=== PATIENT | female | born 1975 ===

== ENCOUNTER 2018-10-25 18:38 | Inpatient (IN) | payer MEDICAID ==
[2018-10-25] MEDS ORDERED: HYDROmorphone 1 MG/ML Syringe IVPUSH ONE (19:02)
[2018-10-25] MEDS ORDERED: Ondansetron 4 MG/2 ML SDV IVPUSH ONE (19:02)
[2018-10-25] MEDS ORDERED: cefTRIAXone 1 GM in Sodium Chloride 0.9% 100 ML IV SCH (19:15)
--- NOTE | 2018-10-25 20:23 | EDM.PDOC ---
ED HPI GENERAL MEDICAL PROBLEM - General Chief Complaint: Genitourinary Problem Stated Complaint: POSS KIDNEY INFECTION Time Seen by Provider: 10/25/18 18:54 Source of Information: Reports: Patient, RN Notes Reviewed History Limitations: Reports: No Limitations - History of Present Illness INITIAL COMMENTS - FREE TEXT/NARRATIVE: Patient is a 43 year old female who presents to the ED for the evaluation of pyelonephritis. The patient states that a few days ago she began to feel ill. She admits to having nausea with vomiting, abdominal pain, back pain. She states that this was bad enough that [facility], and they did lab work which showed that her WBC was elevated at 24, and a CT that demonstrated that she had bilateral pyelonephritis. She has been unable to keep much down for food or water and would rate her abdominal pain at 9/10. She states that she has had a low grade fever as well. She denies any other urinary symptoms. 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 History: csection - Past Surgical History GI Surgical History: Reports: Hernia, Inguinal Musculoskeletal Surgical History: Reports: ORIF Social & Family History - Family History Family Medical History: Noncontributory - Tobacco Use Smoking Status *Q: Never Smoker - Caffeine Use Caffeine Use: Reports: Soda - Recreational Drug Use Recreational Drug Use: No ED ROS GENERAL - Review of Systems Review Of Systems: See Below Constitutional: Reports: Fever, Malaise HEENT: Reports: No Symptoms Respiratory: Reports: No Symptoms Cardiovascular: Reports: No Symptoms Endocrine: Reports: No Symptoms GI/Abdominal: Reports: Abdominal Pain, Nausea, Vomiting. Denies: Diarrhea : Reports: No Symptoms, Flank Pain (bilateral with back pain) Musculoskeletal: Reports: No Symptoms Skin: Reports: No Symptoms Neurological: Reports: No Symptoms Psychiatric: Reports: No Symptoms Hematologic/Lymphatic: Reports: No Symptoms ED EXAM, RENAL/ - Physical Exam Exam: See Below Exam Limited By: No Limitations General Appearance: Alert, WD/WN, Mild Distress (pt appears to be in pain, is in ball on ED cot upont initial presentation.) Eye Exam: Bilateral Eye: EOMI, Normal Inspection, PERRL Ears: Normal External Exam Nose: Normal Inspection Throat/Mouth: Normal Inspection, Normal Oropharynx Head: Atraumatic, Normocephalic Neck: Normal Inspection Respiratory/Chest: No Respiratory Distress, Lungs Clear, Normal Breath Sounds, No Accessory Muscle Use, Chest Non-Tender Cardiovascular: Normal Peripheral Pulses, Regular Rate, Rhythm, No Murmur GI/Abdominal: Normal Bowel Sounds, Soft, No Distention, Guarding, Tender ( general tenderness throughout abdomen). No: Rigid, Rebound Back Exam: Normal Inspection, Full Range of Motion, CVA Tenderness (L), CVA Tenderness (R) Extremities: Normal Inspection, Normal Capillary Refill Neurological: Alert, Oriented, Normal Cognition, No Motor/Sensory Deficits Psychiatric: Normal Affect, Normal Mood Skin Exam: Warm, Dry, Intact, Normal Color, No Rash Course - Vital Signs Last Recorded V/S: Last Vital Signs Temp 99.6 F 10/25/18 18:51 Pulse 93 10/25/18 18:51 Resp 16 10/25/18 18:51 BP 159/86 H 10/25/18 18:51 Pulse Ox 94 L 10/25/18 18:51 - Orders/Labs/Meds Orders: Medication Orders Acetaminophen (Tylenol) 650 mg PO Q4H PRN PRN Reason: Pain (Mild 1-3)/fever Acetaminophen/Butalbital/Caffeine (Fioricet 325-50-40 Mg) 1 tab PO Q6H PRN PRN Reason: Headache/Pain Hydrocodone Bitart/Acetaminophen (Halbur 325-5 Mg) 1 tab PO Q4H PRN PRN Reason: Pain (moderate 4-6) Albuterol/Ipratropium (Duoneb 3.0-0.5 Mg/3 Ml) 3 ml NEB Q4H PRN PRN Reason: Shortness Of Breath/wheezing Bisacodyl (Dulcolax) 5 mg PO DAILY PRN PRN Reason: Constipation Famotidine (Pepcid) 20 mg PO BID YAQUELIN Hydralazine HCl (Apresoline) 20 mg IVPUSH Q4H PRN PRN Reason: Hypertension Hydromorphone HCl (Dilaudid) 0.5 mg IVPUSH Q4H PRN PRN Reason: Pain (severe 7-10) Sodium Chloride (Normal Saline) 1,000 mls @ 125 mls/hr IV ASDIRECTED [facility] Ceftriaxone Sodium 1 gm/ (Sodium Chloride) 100 mls @ 200 mls/hr IV Q24H YAQUELIN Piperacillin Sod/Tazobactam (Sod 4.5 gm/ Sodium Chloride) 100 mls @ 25 mls/hr IV Q8H YAQUELIN Piperacillin Sod/Tazobactam (Sod 4.5 gm/ Sodium Chloride) 100 mls @ 200 mls/hr IV ONETIME ONE Stop: 10/25/18 23:29 Lorazepam (Ativan) 1 mg IV Q6H PRN PRN Reason: Anxiety Magnesium Sulfate (Pharmacy To Dose - Magnesium Replacement) 1 dose .XX ASDIRECTED [facility] Metoprolol Tartrate (Lopressor) 5 mg IVPUSH Q4H PRN PRN Reason: Tachycardia Non-Formulary Medication (Lisinopril/Hydrochlorothiazide) 1 each PO DAILY [facility] Ondansetron HCl (Zofran) 4 mg IV Q6H PRN PRN Reason: Nausea/Vomiting Oxycodone HCl (Oxycontin) 10 mg PO Q12HR [facility] Polyethylene Glycol (Miralax) 17 gm PO DAILY PRN PRN Reason: Constipation Potassium Chloride (Pharmacy To Dose - Potassium Replacement) 1 dose .XX ASDIRECTED [facility] Saccharomyces Boulardii (Florastor) 250 mg PO BID [facility] Temazepam (Restoril) 7.5 mg PO BEDTIME PRN PRN Reason: Sleep Tramadol HCl (Ultram) 100 mg PO Q6H PRN PRN Reason: Pain (moderate 4-6) Meds: Medications Generic Name Dose Route Start Last Admin Trade Name Freq PRN Reason Stop Dose Admin Acetaminophen 650 mg 10/25/18 22:16 Tylenol PO Q4H PRN Pain (Mild 1-3)/fever Acetaminophen/Butalbital/Caffeine 1 tab 10/25/18 22:25 Fioricet 325-50-40 Mg PO Q6H PRN Headache/Pain Hydrocodone Bitart/Acetaminophen 1 tab 10/25/18 22:16 Halbur 325-5 Mg PO Q4H PRN Pain (moderate 4-6) Albuterol/Ipratropium 3 ml 10/25/18 22:16 Duoneb 3.0-0.5 Mg/3 Ml NEB Q4H PRN Shortness Of Breath/wheezing Bisacodyl 5 mg 10/25/18 22:16 Dulcolax PO DAILY PRN Constipation Famotidine 20 mg 10/26/18 09:00 Pepcid PO BID [facility] Hydralazine HCl 20 mg 10/25/18 22:15 Apresoline IVPUSH Q4H PRN Hypertension Hydromorphone HCl 0.5 mg 10/25/18 22:25 Dilaudid IVPUSH Q4H PRN Pain (severe 7-10) Sodium Chloride 1,000 mls @ 125 mls/hr 10/25/18 22:30 Normal Saline IV ASDIRECTED [facility] Ceftriaxone Sodium 1 gm/ 100 mls @ 200 mls/hr 10/26/18 20:00 Sodium Chloride IV Q24H [facility] Piperacillin Sod/Tazobactam 100 mls @ 25 mls/hr 10/26/18 07:00 Sod 4.5 gm/ Sodium Chloride IV Q8H YAQUELIN Piperacillin Sod/Tazobactam 100 mls @ 200 mls/hr 10/25/18 23:00 Sod 4.5 gm/ Sodium Chloride IV 10/25/18 23:29 ONETIME ONE Lorazepam 1 mg 10/25/18 22:16 Ativan IV Q6H PRN Anxiety Magnesium Sulfate 1 dose 10/25/18 22:15 Pharmacy To Dose - Magnesium Replacement .XX ASDIRECTED [facility] Metoprolol Tartrate 5 mg 10/25/18 22:15 Lopressor IVPUSH Q4H PRN Tachycardia Non-Formulary Medication 1 each 10/26/18 09:00 Lisinopril/Hydrochlorothiazide PO DAILY [facility] Ondansetron HCl 4 mg 10/25/18 22:16 Zofran IV Q6H PRN Nausea/Vomiting Oxycodone HCl 10 mg 10/26/18 09:00 Oxycontin PO Q12HR [facility] Polyethylene Glycol 17 gm 10/25/18 22:16 Miralax PO DAILY PRN Constipation Potassium Chloride 1 dose 10/25/18 22:15 Pharmacy To Dose - Potassium Replacement .XX ASDIRECTED [facility] Saccharomyces Boulardii 250 mg 10/26/18 09:00 Florastor PO BID YAQUELIN Temazepam 7.5 mg 10/25/18 22:16 Restoril PO BEDTIME PRN Sleep Tramadol HCl 100 mg 10/25/18 22:24 Ultram PO Q6H PRN Pain (moderate 4-6) Discontinued Medications Generic Name Dose Route Start Last Admin Trade Name Freq PRN Reason Stop Dose Admin Hydromorphone HCl 0.5 mg 10/25/18 19:02 10/25/18 20:34 Dilaudid IVPUSH 10/25/18 19:03 0.5 mg ONETIME ONE Administration Ceftriaxone Sodium 1 gm/ 100 mls @ 200 mls/hr 10/25/18 19:15 10/25/18 20:34 Sodium Chloride IV 200 mls/hr Q24H YAQUELIN Administration Sodium Chloride 1,000 mls @ 999 mls/hr 10/25/18 20:30 10/25/18 20:33 Normal Saline IV 999 mls/hr ASDIRECTED YAQUELIN Administration Ondansetron HCl 4 mg 10/25/18 19:02 10/25/18 20:33 Zofran IVPUSH 10/25/18 19:03 4 mg ONETIME ONE Administration Scopolamine 1.5 mg 10/25/18 22:22 Transderm-Scop TRDERM 10/25/18 22:23 Q72H ONE - Re-Assessments/Exams Free Text/Narrative Re-Assessment/Exam: 10/25/18 20:25 Pt presents to the ED for the evaluation of pyelonephritis. [facility] in clinic did most of the work up and sent her with paperwork, the CT did demonstrate pyelonephritis, but because she is unable to keep any fluids/foods/ meds down by mouth they sent her here for IV antibiotics and nausea medications. I have ordered 4mg IV zofran, 1g IV Rocephin, 0.5 IV Dilaudid and IV bolus of fluid for initial management. 10/25/18 22:03 Pt was re-assessed at bedside and she will require hospital admission for observation for pain/nausea management overnight. Dr. Angeles has accepted. Bridge orders have been written. Departure - Departure Time of Disposition: 22:04 Disposition: Refer to Observation Condition: Fair Clinical Impression: Pyelonephritis - Discharge Information *PRESCRIPTION DRUG MONITORING PROGRAM REVIEWED*: No *COPY OF PRESCRIPTION DRUG MONITORING REPORT IN PATIENT YAHIR: No
[2018-10-25] MEDS ORDERED: Sodium Chloride 0.9% 1,000 ML IV SCH (20:30)
[2018-10-25] MEDS ORDERED: Metoprolol Tartrate 5 MG/5 ML SDV IVPUSH PRN (22:15)
[2018-10-25] MEDS ORDERED: hydrALAZINE 20 MG/ML SDV IVPUSH PRN (22:15)
[2018-10-25] MEDS ORDERED: Polyethylene Glycol 3350 Powder 17 GM Packet PO PRN (22:16)
[2018-10-25] MEDS ORDERED: Bisacodyl 5 MG Tab PO PRN (22:16)
[2018-10-25] MEDS ORDERED: Acetaminophen 325 MG Tab PO PRN (22:16)
[2018-10-25] MEDS ORDERED: Albuterol/Ipratropium 3.0-0.5 MG/3 ML Neb Soln NEB PRN (22:16)
[2018-10-25] MEDS ORDERED: Temazepam 7.5 MG Cap PO PRN (22:16)
[2018-10-25] MEDS ORDERED: LORazepam 2 MG/ML SDV IV PRN (22:16)
[2018-10-25] MEDS ORDERED: Scopolamine 1.5 MG Transdermal Patch TRDERM ONE (22:22)
[2018-10-25] MEDS ORDERED: traMADol 50 MG Tab PO PRN (22:24)
[2018-10-25] MEDS ORDERED: Acetaminophen/Butalbital/Caffeine 325-50-40 MG Tab PO PRN (22:25)
[2018-10-25] MEDS ORDERED: Piperacillin/Tazobactam 4.5 GM in Sodium Chloride 0.9% 100 ML IV ONE (23:00)
[2018-10-25] MEDS: Sodium Chloride 0.9% 1,000 ML IV SCH (23:47)
[2018-10-25] MEDS: HYDROmorphone 1 MG/ML Syringe IVPUSH PRN (23:51)
[2018-10-26] MEDS ORDERED: Sodium Chloride 0.9% 100 ML ONE (00:03)
[2018-10-26] MEDS: Acetaminophen/HYDROcodone 325-5 MG Tab PO PRN ×2 (04:17→18:20)
[2018-10-26] MEDS: Ondansetron 4 MG/2 ML SDV IV PRN ×2 (04:17→10:22)
[2018-10-26] MEDS: HYDROmorphone 1 MG/ML Syringe IVPUSH PRN (05:24)
[2018-10-26] MEDS: Piperacillin/Tazobactam 4.5 GM in Sodium Chloride 0.9% 100 ML IV SCH ×3 (06:32→21:51)
[2018-10-26] MEDS: Sodium Chloride 0.9% 1,000 ML IV SCH ×2 (06:37→20:32)
--- NOTE | 2018-10-26 07:39 | PCM.HP ---
H&P History of Present Illness - General Date of Service: 10/26/18 Admit Problem/Dx: Admission Diagnosis/Problem Admission Diagnosis/Problem Pyelonephritis Source of Information: Patient, Old Records, Provider, RN, RN Notes Reviewed History Limitations: Reports: No Limitations - History of Present Illness Initial Comments - Free Text/Narative: Taylor Reid is a 43yo female who presented to our ED on 10/25/18 with a possible kidney infection. She reports she has had symptoms for a few days, which include nausea, vomiting, abdominal pain, and back pain. She presented to the walk-in clinic at [facility] today in the lab work. CBC showed a WBC elevated at 24. CT scan was obtained that did show bilateral pyelonephritis , worse on the left than on the right. She rated her pain at 9 out of 10 and reports she is not okay much food or water down. She reports a low-grade fever but denies any other urinary symptoms. Lab work performed [facility] was reviewed: WBC is 24.5. Hemoglobin 7.9. Hematocrit 26.8. She is microcytic. Pulses are good at 325,000. UA is obtained showing 21-50 WBCs, 11-30 RBCs, occasional epithelial cells, and moderate bacteria. 100 mg/dL protein and moderate leukocyte esterase are also noted. Neutrophils are noted to be elevated at 90% however there is no bandemia present. Glucose is 94. BUN is 9. Creatinine 1.0. Sodium is 140. Potassium is just a smidge low at 3.4. Chloride 106. CO2 27. Anion gap is 10. Calcium is 9.0. Protein 7.7. Albumin 3.8. Alkaline phosphatase is 104. AST is 25, ALT 22, total bilirubin 0.7. EGFR is 73. Amylase is obtained and is normal less than 30. Abdomen pelvis CT with contrast is interpreted as "1. Imaging findings suggestive of pyelonephritis, left greater than right. No CT evidence of renal abscess. No obvious urinary calculus, however ureters are difficult to follow in their entirety distally. 2. Mild irregularity involving the inferior endplate of L5. Findings are likely degenerative or related to Schmorl's node formation, but if clinical concern for discitis osteomyelitis, correlation with lumbar spine MR could be useful. 3. Irregularity of the sacroiliac joints bilaterally( series 4, image 63). CT findings are suggestive of changes from sacroiliitis. 4. Left adnexal cyst measuring 2.5 cm." In our ED temp was 99.6 Fahrenheit. Pulse 93. Respirations 16. Blood pressure 159/86. Pulse ox 94% she was given Dilaudid for pain and a 1 L fluid bolus. She is also given 4 mg IV push Zofran and a scopolamine patch. 1 g IV Rocephin was started. Dr. Angeles requested a quantitative hCG which was negative. CRP was obtained and was 15.1. Repeat UA was obtained showing cloudy urine with 1+ protein, 1+ occult blood, 1+ leukocyte esterase, 20-30 WBCs, 10- 20 epithelial cells. Urine hCG was also negative. She carries a history of hypertension, hiatal hernia, , tubal ligation , inguinal hernia repair. She was never a smoker. She was admitted observation status. She does not have a PCP in the area. Back Pain Score (Numeric/FACES): 9 - Related Data Allergies/Adverse Reactions: Allergies Allergy/AdvReac Type Severity Reaction Status Date / Time No Known Allergies Allergy Verified 10/25/18 18:47 Home Medications: Home Meds Lisinopril/Hydrochlorothiazide [Lisinopril-Hctz 10-12.5 mg Tab] 1 each PO DAILY 10/25/18 [History] Past Medical History Cardiovascular History: Reports: Hypertension Gastrointestinal History: Reports: Hiatal Hernia [employer] History: Reports: Other OB/BYN History: - Past Surgical History GI Surgical History: Reports: Hernia, Inguinal Musculoskeletal Surgical History: Reports: ORIF Other Musculoskeletal Surgeries/Procedures:: Right leg from was deformed and needed to be broke, fixed at that time. Social & Family History - Family History Family Medical History: Noncontributory - Tobacco Use Smoking Status *Q: Never Smoker Second Hand Smoke Exposure: No - Caffeine Use Caffeine Use: Reports: Soda - Recreational Drug Use Recreational Drug Use: No H&P Review of Systems - Review of Systems: Review Of Systems: See Below General: Reports: Fever, Malaise, Weakness, Fatigue. Denies: Chills HEENT: Reports: No Symptoms. Denies: Headaches, Rhinitis, Vertigo Pulmonary: Denies: Shortness of Breath, Wheezing, Cough, Sputum Cardiovascular: Denies: Chest Pain, Palpitations, Dyspnea on Exertion, Edema, Lightheadedness Gastrointestinal: Reports: Abdominal Pain (Radiating from back to abdomen to groin bilaterally ), Decreased Appetite, Nausea, Vomiting. Denies: Constipation , Diarrhea, Hematemesis, Hematochezia, Melena Genitourinary: Reports: Frequency, Urgency, Flank Pain. Denies: Pain, Incontinence, Hematuria Musculoskeletal: Reports: Back Pain Skin: Reports: No Symptoms. Denies: Cyanosis Psychiatric: Reports: No Symptoms. Denies: Confusion Neurological: Reports: No Symptoms Hematologic/Lymphatic: Reports: No Symptoms Immunologic: Reports: No Symptoms Exam - Exam Exam: See Below - Vital Signs Vital Signs: Last Vital Signs Temp 99.0 F 10/26/18 04:21 Pulse 92 10/26/18 04:01 Resp 20 10/26/18 04:21 BP 111/73 10/26/18 04:21 Pulse Ox 95 10/26/18 04:01 Weight: 231 lb 6.4 oz - Exam Quality Assessment: DVT Prophylaxis General: Alert, Oriented, Cooperative. No: Mild Distress HEENT: Conjunctiva Clear, EACs Clear, EOMI, Hearing Intact, Mucosa Moist & [place] , Normal Nasal Septum, Posterior Pharynx Clear Neck: Supple, Trachea Midline Lungs: Clear to Auscultation, Normal Respiratory Effort Cardiovascular: Regular Rate, Regular Rhythm GI/Abdominal Exam: Normal Bowel Sounds, Soft, No Organomegaly, No Distention, Guarding, Tender (Female) Exam: Deferred Rectal (Female) Exam: Deferred Back Exam: Normal Inspection, Full Range of Motion, CVA Tenderness (L), CVA Tenderness (R) (More left than right ) Extremities: Normal Inspection, Normal Range of Motion, Non-Tender, No Pedal Edema, Normal Capillary Refill Peripheral Pulses: 3+: Radial (L), Radial (R), Dorsalis Pedis (L), Dorsalis Pedis (R) Skin: Warm, Dry, Intact Neurological: Cranial Nerves Intact (grossly ) Neuro Extensive - Mental Status: Alert, Oriented x3, Normal Mood/Affect - Patient Data Lab Results Last 24 hrs: Laboratory Results - last 24 hr 10/25/18 10/25/18 10/25/18 Range/Units 21:35 21:35 22:50 WBC (3.98-10.04) K/mm3 RBC (3.98-5.22) M/mm3 Hgb (11.2-15.7) gm/L Hct (34.1-44.9) % MCV (79.4-94.8) fl MCH (25.6-32.2) pg MCHC (32.2-35.5) g/dl RDW Std Deviation (36.4-46.3) fL Plt Count (182-369) K/mm3 MPV (9.4-12.3) fl Neut % (Auto) (34.0-71.1) % Lymph % (Auto) (19.3-51.7) % [place] % (Auto) (4.7-12.5) % Eos % (Auto) (0.7-5.8) Baso % (Auto) (0.1-1.2) % Neut # (Auto) (1.56-6.13) K/mm3 Lymph # (Auto) (1.18-3.74) K/mm3 [place] # (Auto) (0.24-0.36) K/mm3 Eos # (Auto) (0.04-0.36) K/mm3 Baso # (Auto) (0.01-0.08) K/mm3 Sodium (136-145) mEq/L Potassium (3.5-5.1) mEq/L Chloride (98-107) mEq/L Carbon Dioxide (21-32) mEq/L Anion Gap (5-15) BUN (7-18) mg/dL Creatinine (0.55-1.02) mg/dL Est Cr Clr Drug Dosing mL/min Estimated GFR (MDRD) (>60) mL/min BUN/Creatinine Ratio (14-18) Glucose (74-106) mg/dL Calcium (8.5-10.1) mg/dL Magnesium (1.8-2.4) mg/dl C-Reactive Protein 15.1 H* (<1.0) mg/dL HCG, Quant mIU/mL Urine Color Yellow (Yellow) Urine Appearance Slt cloudy H (Clear) Urine pH 6.0 (5.0-8.0) Ur Specific [place] 1.010 (1.005-1.030) Urine Protein 1+ H (Negative) Urine Glucose (UA) Negative (Negative) Urine Ketones Negative (Negative) Urine Occult Blood 1+ H (Negative) Urine Nitrite Negative (Negative) Urine Bilirubin Negative (Negative) Urine Urobilinogen 1.0 (0.2-1.0) Ur Leukocyte Esterase 1+ H (Negative) Urine RBC 0-5 (0-5) /hpf Urine WBC 20-30 H (0-5) /hpf Urine WBC Clumps Few (NOT SEEN) /hpf Ur Epithelial Cells 10-20 H (0-5) /hpf Urine Bacteria Few (FEW) /hpf Urine Mucus Not seen (FEW) /hpf Urine HCG, Qual Negative (NEGATIVE) 10/25/18 10/26/18 10/26/18 Range/Units 22:50 05:41 05:41 WBC 23.01 H (3.98-10.04) K/mm3 RBC 4.23 (3.98-5.22) M/mm3 Hgb 7.2 L* (11.2-15.7) gm/L Hct 24.7 L (34.1-44.9) % MCV 58.4 L (79.4-94.8) fl MCH 17.0 L (25.6-32.2) pg MCHC 29.1 L (32.2-35.5) g/dl RDW Std Deviation 40.4 (36.4-46.3) fL Plt Count 295 (182-369) K/mm3 MPV 10.6 (9.4-12.3) fl Neut % (Auto) 80.9 H (34.0-71.1) % Lymph % (Auto) 5.3 L (19.3-51.7) % Swift % (Auto) 13.3 H (4.7-12.5) % Eos % (Auto) 0.2 L (0.7-5.8) Baso % (Auto) 0.0 L (0.1-1.2) % Neut # (Auto) 18.60 H (1.56-6.13) K/mm3 Lymph # (Auto) 1.23 (1.18-3.74) K/mm3 [place] # (Auto) 3.06 H (0.24-0.36) K/mm3 Eos # (Auto) 0.05 (0.04-0.36) K/mm3 Baso # (Auto) 0.01 (0.01-0.08) K/mm3 Sodium 135 L (136-145) mEq/L Potassium 3.0 L (3.5-5.1) mEq/L Chloride 104 (98-107) mEq/L Carbon Dioxide 23 (21-32) mEq/L Anion Gap 11.0 (5-15) BUN 9 (7-18) mg/dL Creatinine 1.2 H (0.55-1.02) mg/dL Est Cr Clr Drug Dosing 53.83 mL/min Estimated GFR (MDRD) 59 (>60) mL/min BUN/Creatinine Ratio 7.5 L (14-18) Glucose 114 H (74-106) mg/dL Calcium 8.6 (8.5-10.1) mg/dL Magnesium 2.0 (1.8-2.4) mg/dl C-Reactive Protein (<1.0) mg/dL HCG, Quant < 1.0 mIU/mL Urine Color (Yellow) Urine Appearance (Clear) Urine pH (5.0-8.0) Ur Specific [place] (1.005-1.030) Urine Protein (Negative) Urine Glucose (UA) (Negative) Urine Ketones (Negative) Urine Occult Blood (Negative) Urine Nitrite (Negative) Urine Bilirubin (Negative) Urine Urobilinogen (0.2-1.0) Ur Leukocyte Esterase (Negative) Urine RBC (0-5) /hpf Urine WBC (0-5) /hpf Urine WBC Clumps (NOT SEEN) /hpf Ur Epithelial Cells (0-5) /hpf Urine Bacteria (FEW) /hpf Urine Mucus (FEW) /hpf Urine HCG, Qual (NEGATIVE) Result Diagrams: 10/26/18 10:08 10/26/18 05:41 - Problem List (1) Pyelonephritis SNOMED Code(s): 30959878 ICD Code: N12 - TUBULO-INTERSTITIAL NEPHRITIS, NOT SPCF ACUTE OR CHRONIC Status: Acute Priority: High Current Visit: Yes (2) Anemia SNOMED Code(s): 716694135 ICD Code: D64.9 - ANEMIA, UNSPECIFIED Status: Acute Priority: High Current Visit: Yes Qualifiers: Anemia type: iron deficiency Iron deficiency anemia type: unspecified iron deficiency Qualified Code(s): D50.9 - Iron deficiency anemia, unspecified (3) Bilateral flank pain SNOMED Code(s): 594697287 ICD Code: R10.9 - UNSPECIFIED ABDOMINAL PAIN Status: Acute Priority: High Current Visit: Yes Problem List Initiated/Reviewed/Updated: Yes Orders Last 24hrs: Active Orders 24 hr Category Date Time Status Admission Status [Patient Status] [ADT] Routine ADT 10/25/18 21:56 Active Ambulate [RC] 09,15 Care 10/25/18 22:26 Active Antiembolic Devices [RC] BID Care 10/25/18 22:19 Active Height and Weight [RC] 04 Care 10/25/18 22:16 Active Intake and Output [RC] QSHIFT Care 10/25/18 22:17 Active Oxygen Therapy [RC] PRN Care 10/25/18 22:17 Active RT Aerosol Therapy [RC] ASDIRECTED Care 10/25/18 22:19 Active Up With Assistance [RC] BID Care 10/25/18 22:16 Active Up ad Anna [RC] BID Care 10/25/18 22:16 Active VTE/DVT Education [RC] DAILY Care 10/25/18 22:17 Active Vital Signs [RC] Q4HR Care 10/25/18 22:17 Active Nothing per Oral Now Diet [DIET] Diet 10/25/18 Dinner Active Regular Diet [DIET] Diet 10/25/18 Breakfast Active BASIC METABOLIC PANEL,BMP [CHEM] AM Lab 10/27/18 05:11 Ordered BASIC METABOLIC PANEL,BMP [CHEM] AM Lab 10/28/18 05:11 Ordered BASIC METABOLIC PANEL,BMP [CHEM] AM Lab 10/29/18 05:11 Ordered BASIC METABOLIC PANEL,BMP [CHEM] AM Lab 10/30/18 05:11 Ordered CBC WITH AUTO DIFF [HEME] AM Lab 10/26/18 05:41 Results CBC WITH AUTO DIFF [HEME] AM Lab 10/27/18 05:11 Ordered CBC WITH AUTO DIFF [HEME] AM Lab 10/28/18 05:11 Ordered CBC WITH AUTO DIFF [HEME] AM Lab 10/29/18 05:11 Ordered CBC WITH AUTO DIFF [HEME] AM Lab 10/30/18 05:11 Ordered CRP [C-REACTIVE PROTEIN] [CHEM] AM Lab 10/27/18 05:11 Ordered CRP [C-REACTIVE PROTEIN] [CHEM] AM Lab 10/28/18 05:11 Ordered CRP [C-REACTIVE PROTEIN] [CHEM] AM Lab 10/29/18 05:11 Ordered CRP [C-REACTIVE PROTEIN] [CHEM] AM Lab 10/30/18 05:11 Ordered CULTURE BLOOD [BC] Stat Lab 10/25/18 22:20 Ordered CULTURE BLOOD [BC] Stat Lab 10/25/18 22:50 Received CULTURE URINE [RM] Stat Lab 10/25/18 22:10 Received FE, TIBC, TRANSFERRIN, FE SAT [CHEM] Routine Lab 10/26/18 05:41 Received HEMOGLOBIN/HEMATOCRIT,HH [HEME] Routine Lab 10/26/18 10:00 Ordered MAGNESIUM [CHEM] AM Lab 10/27/18 05:11 Ordered MAGNESIUM [CHEM] AM Lab 10/28/18 05:11 Ordered MAGNESIUM [CHEM] AM Lab 10/29/18 05:11 Ordered MAGNESIUM [CHEM] AM Lab 10/30/18 05:11 Ordered OCCULT BLOOD DIAGNOSTIC [OP] Routine Lab 10/26/18 07:15 Ordered PROCALCITONIN [REF] Stat Lab 10/25/18 22:30 Received Acetaminophen [Tylenol] Med 10/25/18 22:16 Active 650 mg PO Q4H PRN Acetaminophen/Butalbital/Caff [Fioricet 325-50-40 MG] Med 10/25/18 22:25 Active 1 tab PO Q6H PRN Acetaminophen/HYDROcodone [Covert 325-5 MG] Med 10/25/18 22:16 Active 1 tab PO Q4H PRN Albuterol/Ipratropium [DuoNeb 3.0-0.5 MG/3 ML] Med 10/25/18 22:16 Active 3 ml NEB Q4H PRN Bisacodyl [Dulcolax] Med 10/25/18 22:16 Active 5 mg PO DAILY PRN Famotidine [Pepcid] Med 10/26/18 09:00 Active 20 mg PO BID HYDROmorphone [Dilaudid] Med 10/25/18 22:25 Active 0.5 mg IVPUSH Q4H PRN LORazepam [Ativan] Med 10/25/18 22:16 Active 1 mg IV Q6H PRN Lisinopril/Hydrochlorothiazide Med 10/26/18 09:00 Pending 1 each PO DAILY Metoprolol Tartrate [Lopressor] Med 10/25/18 22:15 Active 5 mg IVPUSH Q4H PRN Ondansetron [Zofran] Med 10/25/18 22:16 Active 4 mg IV Q6H PRN Pharmacy to Dose - Magnesium R [Pharmacy to Dose - Med 10/25/18 22:15 Active Magnesium Replacement] 1 dose .XX ASDIRECTED Pharmacy to Dose - Potassium R [Pharmacy to Dose - Med 10/25/18 22:15 Active Potassium Replacement] 1 dose .XX ASDIRECTED Piperacillin/Tazobactam [Piperacil-Tazobact] 4.5 gm Med 10/26/18 07:00 Active Sodium Chloride 0.9% [Normal Saline] 100 ml IV Q8H Polyethylene Glycol 3350 [MiraLAX] Med 10/25/18 22:16 Active 17 gm PO DAILY PRN Saccharomyces Boulardii [Florastor] Med 10/26/18 09:00 Active 250 mg PO BID Sodium Chloride 0.9% [Normal Saline] 1,000 ml Med 10/25/18 22:30 Active IV ASDIRECTED Temazepam [Restoril] Med 10/25/18 22:16 Active 7.5 mg PO BEDTIME PRN cefTRIAXone [Rocephin] 1 gm Med 10/26/18 20:00 Active Sodium Chloride 0.9% [Normal Saline] 100 ml IV Q24H hydrALAZINE [Apresoline] Med 10/25/18 22:15 Active 20 mg IVPUSH Q4H PRN oxyCODONE ER [OxyCONTIN] Med 10/26/18 09:00 Active 10 mg PO Q12HR traMADol [Ultram] Med 10/25/18 22:24 Active 100 mg PO Q6H PRN Blood Culture x2 Reflex Set [OM.PC] Stat Oth 10/25/18 22:16 Ordered Sequential Compression Device [OM.PC] Per Unit Routine Oth 10/25/18 22:17 Ordered Resuscitation Status Routine Resus Stat 10/25/18 22:16 Ordered Medication Orders Acetaminophen (Tylenol) 650 mg PO Q4H PRN PRN Reason: Pain (Mild 1-3)/fever Acetaminophen/Butalbital/Caffeine (Fioricet 325-50-40 Mg) 1 tab PO Q6H PRN PRN Reason: Headache/Pain Hydrocodone Bitart/Acetaminophen (Covert 325-5 Mg) 1 tab PO Q4H PRN PRN Reason: Pain (moderate 4-6) Albuterol/Ipratropium (Duoneb 3.0-0.5 Mg/3 Ml) 3 ml NEB Q4H PRN PRN Reason: Shortness Of Breath/wheezing Bisacodyl (Dulcolax) 5 mg PO DAILY PRN PRN Reason: Constipation Famotidine (Pepcid) 20 mg PO BID [facility] Hydralazine HCl (Apresoline) 20 mg IVPUSH Q4H PRN PRN Reason: Hypertension Hydromorphone HCl (Dilaudid) 0.5 mg IVPUSH Q4H PRN PRN Reason: Pain (severe 7-10) Last Admin: 10/26/18 05:24 Dose: 0.5 mg Admin: 10/25/18 23:51 Dose: 0.5 mg Sodium Chloride (Normal Saline) 1,000 mls @ 125 mls/hr IV ASDIRECTED [facility] Last Admin: 10/26/18 06:37 Dose: 125 mls/hr Infusion: 10/26/18 06:37 Dose: 125 mls/hr Admin: 10/25/18 23:47 Dose: 125 mls/hr Ceftriaxone Sodium 1 gm/ (Sodium Chloride) 100 mls @ 200 mls/hr IV Q24H [facility] Piperacillin Sod/Tazobactam (Sod 4.5 gm/ Sodium Chloride) 100 mls @ 25 mls/hr IV Q8H [facility] Last Admin: 10/26/18 06:32 Dose: 25 mls/hr Lorazepam (Ativan) 1 mg IV Q6H PRN PRN Reason: Anxiety Magnesium Sulfate (Pharmacy To Dose - Magnesium Replacement) 1 dose .XX ASDIRECTED [facility] Metoprolol Tartrate (Lopressor) 5 mg IVPUSH Q4H PRN PRN Reason: Tachycardia Non-Formulary Medication (Lisinopril/Hydrochlorothiazide) 1 each PO DAILY [facility] Ondansetron HCl (Zofran) 4 mg IV Q6H PRN PRN Reason: Nausea/Vomiting Last Admin: 10/26/18 04:17 Dose: 4 mg Oxycodone HCl (Oxycontin) 10 mg PO Q12HR [facility] Polyethylene Glycol (Miralax) 17 gm PO DAILY PRN PRN Reason: Constipation Potassium Chloride (Pharmacy To Dose - Potassium Replacement) 1 dose .XX ASDIRECTED [facility] Saccharomyces Boulardii (Florastor) 250 mg PO BID [facility] Temazepam (Restoril) 7.5 mg PO BEDTIME PRN PRN Reason: Sleep Tramadol HCl (Ultram) 100 mg PO Q6H PRN PRN Reason: Pain (moderate 4-6) Last Admin: 10/26/18 04:26 Dose: 100 mg Assessment/Plan Comment:: I/P: Acute: Pyelonephritis -Reports urgency and increased frequency, fever, nausea, vomiting -Back pain that started a few days ago, has increased in frequency, and radiates bilaterally around flank, through abdomen, and into groin -Pain is 9/10 -Bilateral CVA tenderness -WBC 23.01 -CRP 15.1 -CT scan at [place] (10/25/18) suggests pyelonephritis. Left greater than right, No evidence of abscess, No obvious urinary calculus -UA at [facility] (10/25/18): 21-50 WBCs, 11-30 RBCs, Moderate bacteria, Moderate LE, 100mg/dl Protein -Repeat UA in ED (10/25/18): Cloudy urine with 1+ protein, 1+ occult blood, 1 + leukocyte esterase, 20-30 WBCs, 10-20 epithelial cells -Urine culture pending -Started on 1gm Rocephin -> Stop. -Zosyn and vancomycin started. -IV fluids as ordered -Blood cultures pending -Lactic acid 0.6 -Pain medications as ordered -Probiotic -Antiemetics for nausea -Tylenol for fever Anemia -Hgb noted to be 7.9 at [place] (10/25/18) -Hgb 7.2 on 10/26/17, Repeat 7.1 -Given 2 units of blood on floor -Occult stool ordered -Iron panel: Iron 8, TIBC 254, % saturation 3, transferrin 203 -Reports very heavy periods since tubal ligation, needs to tape 2 pads together -Last menstrual cycle occurred at beginning of month, lasting 4-5 days -Continue to monitor Hypokalemia -Potassium 3.0 -Supplement Irregular CT scan on 10/25/[address] [facility] -"Mild irregularity involving the inferior endplate of L5. Findings are likely degenerative or related to Schmorl's node formation, but if clinical concern for discitis osteomyelitis, correlation with lumbar spine MR could be useful. -Based on severe pain and clinical picture will order MRI of lumbar spine - suggested by Dr. Angeles -Also noted "irregularity of the sacroiliac joints bilateral (series 4, image 63). CT findings are suggestive of changes from sacroiliitis" -Will order Toradol for inflammation -"Left adnexal cyst measuring up to 2.5 cm" -Suggest [employer] follow-up at discharge Chronic: HTN Hiatal hernia Prior Inguinal hernia with surgical repair Plan: Admit to medical floor observation status Other orders as indicated above Home medications as ordered Routine AM labs Ambulate DVT prophylaxis: SCDs Code status: Full code; PCP: None in area - travels here for work
[2018-10-26] MEDS ORDERED: diphenhydrAMINE 50 MG/ML SDV IVPUSH ONE (08:27)
[2018-10-26] MEDS ORDERED: methylPREDNISolone Sodium Succinate 40 MG/1 ML SDV IVPUSH ONE (08:28)
[2018-10-26] MEDS ORDERED: Lisinopril 10 MG Tab PO SCH (09:00)
[2018-10-26] MEDS: oxyCODONE ER 10 MG TAB.ER PO SCH ×2 (09:15→20:41)
[2018-10-26] MEDS: Iron Polysaccharides Complex 150 MG Cap PO SCH (09:19)
[2018-10-26] MEDS: Famotidine 20 MG Tab PO SCH ×2 (09:20→20:42)
[2018-10-26] MEDS: Saccharomyces Boulardii (Probiotic) 250 MG Cap PO SCH ×2 (09:23→20:41)
[2018-10-26] MEDS: Hydrochlorothiazide 12.5 MG Cap PO SCH (10:25)
[2018-10-26] MEDS: Potassium Chloride 20 MEQ Tab.ER PO SCH ×2 (10:32→20:40)
[2018-10-26] MEDS ORDERED: Sodium Chloride 0.9% 500 ML IV ONE (12:00)
[2018-10-26] MEDS: Ketorolac 30 MG/ML SDV IVPUSH SCH ×2 (14:21→20:42)
[2018-10-26] MEDS ORDERED: Gadobenate Dimeglumine 529 MG/ML 20 ML SDV IVPUSH ONE (15:07)
[2018-10-26] MEDS ORDERED: Sodium Chloride 0.9% 10 ML Syringe FLUSH SCH (15:15)
[2018-10-26] MEDS ORDERED: Vancomycin 1 GM, Vancomycin 250 MG in Sodium Chloride 0.9% 250 ML IV SCH ×2 (16:00→22:00)
--- NOTE | 2018-10-26 16:11 | MR ---
MRI lumbar spine (without and with intravenous contrast) Technique: T1, T2 and fat suppressed post gadolinium axial images were obtained from above the L1-L2 disc inferiorly to the L5-S1 disc. T1, T2, fat suppressed inversion recovery and post gadolinium T1 fat-suppressed sagittal images were obtained. Comparison: Previous CT abdomen and pelvis exam of 10/25/18 with reconstructed sagittal images shows the lumbar spine. Findings: T11-T12: Slight circumferential disc bulge is seen. Posterior disc appears to be contained. No central canal stenosis or neural foraminal stenosis is seen. T12-L1 through L3-L4: Posterior disks are maintained. No central canal stenosis or neural foraminal stenosis is seen. L4-L5: Slight circumferential disc bulge is seen. Posterior disc maintains a concave margin. Neural foramina appear patent where the nerve roots exit. No central canal stenosis is seen. L5-S1: Disc protrusion or Schmorl's node deformity is seen into the inferior endplate of L5. Slight circumferential disc bulge is seen with posterior disc is having a planar margin. Minimal area of increased signal is seen within the posterior left annulus compatible with small annular tear. Fatty marrow change is identified around this endplate defect. There is no bone marrow edema within L5. No abnormal enhancement is seen within the disc or within the vertebral body at this level. No central canal stenosis is seen. Neural foramina are patent where the nerve roots exit. Impression: 1. Mild degenerative change as noted above. No evidence of discitis or disc infection. More complete description as noted above. Diagnostic code #2
--- NOTE | 2018-10-26 18:25 | PCM.SN ---
- Free Text/Narrative Note: LS MRI report reads mild degenerative change. No evidence of discitis or disc infection. At this point, no changes needed on her current antibiotic regimen.
[2018-10-26] MEDS ORDERED: cefTRIAXone 1 GM in Sodium Chloride 0.9% 100 ML IV SCH (20:00)
[2018-10-26] MEDS ORDERED: cefTRIAXone 2 GM in Sodium Chloride 0.9% 100 ML IV SCH (20:00)
[2018-10-27] MEDS: Ketorolac 30 MG/ML SDV IVPUSH SCH ×4 (01:36→20:45)
[2018-10-27] MEDS: Piperacillin/Tazobactam 4.5 GM in Sodium Chloride 0.9% 100 ML IV SCH ×3 (01:38→18:42)
[2018-10-27] MEDS: Ondansetron 4 MG/2 ML SDV IV PRN (07:27)
--- NOTE | 2018-10-27 08:05 | PCM.PN ---
- General Info Date of Service: 10/27/18 Admission Dx/Problem (Free Text): Admission Diagnosis/Problem Admission Diagnosis/Problem Pyelonephritis Subjective Update: Taylor is doing better today. Her labs improved and her WBC has come down greatly. Pain is improving on palpation. Her Hgb has come up. Functional Status: Reports: Pain Controlled, Tolerating Diet, Ambulating, Urinating. Denies: New Symptoms - Review of Systems General: Reports: Weakness, Fatigue, Malaise. Denies: Fever, Chills HEENT: Reports: No Symptoms. Denies: Sore Throat Pulmonary: Reports: No Symptoms. Denies: Shortness of Breath, Cough, Sputum, Wheezing Cardiovascular: Reports: No Symptoms. Denies: Chest Pain, Palpitations, Dyspnea on Exertion, Edema, Lightheadedness Gastrointestinal: Reports: Decreased Appetite. Denies: Abdominal Pain, Constipation, Diarrhea, Nausea, Vomiting Genitourinary: Reports: No Symptoms Musculoskeletal: Reports: No Symptoms Skin: Reports: No Symptoms. Denies: Cyanosis Neurological: Reports: No Symptoms, Difficulty Walking (2/2 pain), Gait Disturbance (2/2 pain ). Denies: Confusion, Headache, Numbness, Pre-Existing Deficit, Seizure, Tingling, Trouble Speaking Psychiatric: Reports: No Symptoms - Patient Data Vitals - Most Recent: Last Vital Signs Temp 99.5 F 10/27/18 03:25 Pulse 71 10/27/18 03:25 Resp 16 10/27/18 03:25 BP 110/51 L 10/27/18 03:25 Pulse Ox 90 L 10/27/18 03:25 Weight - Most Recent: 237 lb 12.8 oz I&O - Last 24 Hours: Intake & Output 10/26/18 10/27/18 10/27/18 22:59 06:59 14:59 Intake Total 2153 2839 Output Total 500 900 Balance 1653 1939 Lab Results Last 24 Hours: Laboratory Results - last 24 hr 10/25/18 10/26/18 10/26/18 Range/Units 22:30 05:41 05:41 WBC (3.98-10.04) K/mm3 RBC (3.98-5.22) M/mm3 Hgb (11.2-15.7) gm/L Hct (34.1-44.9) % MCV (79.4-94.8) fl MCH (25.6-32.2) pg MCHC (32.2-35.5) g/dl RDW Std Deviation (36.4-46.3) fL Plt Count (182-369) K/mm3 MPV (9.4-12.3) fl Neut % (Auto) (34.0-71.1) % Lymph % (Auto) (19.3-51.7) % [place] % (Auto) (4.7-12.5) % Eos % (Auto) (0.7-5.8) Baso % (Auto) (0.1-1.2) % Neut # (Auto) (1.56-6.13) K/mm3 Lymph # (Auto) (1.18-3.74) K/mm3 [place] # (Auto) (0.24-0.36) K/mm3 Eos # (Auto) (0.04-0.36) K/mm3 Baso # (Auto) (0.01-0.08) K/mm3 Manual Slide Review Abnormal smear Sodium (136-145) mEq/L Potassium (3.5-5.1) mEq/L Chloride (98-107) mEq/L Carbon Dioxide (21-32) mEq/L Anion Gap (5-15) BUN (7-18) mg/dL Creatinine (0.55-1.02) mg/dL Est Cr Clr Drug Dosing mL/min Estimated GFR (MDRD) (>60) mL/min BUN/Creatinine Ratio (14-18) Glucose (74-106) mg/dL Lactic Acid (0.4-2.0) mmol/L Calcium (8.5-10.1) mg/dL Magnesium (1.8-2.4) mg/dl C-Reactive Protein (<1.0) mg/dL Procalcitonin 7.35 H (<0.10) ng/mL Blood Type O NEGATIVE Gel Antibody Screen Negative Crossmatch See Detail 10/26/18 10/26/18 10/27/18 Range/Units 10:08 12:40 06:45 WBC 12.75 H (3.98-10.04) K/mm3 RBC 4.63 (3.98-5.22) M/mm3 Hgb 7.1 L* 8.9 L (11.2-15.7) gm/L Hct 24.4 L 29.0 L (34.1-44.9) % MCV 62.6 L (79.4-94.8) fl MCH 19.2 L (25.6-32.2) pg MCHC 30.7 L (32.2-35.5) g/dl RDW Std Deviation 51.7 H (36.4-46.3) fL Plt Count 232 (182-369) K/mm3 MPV 9.5 (9.4-12.3) fl Neut % (Auto) 80.0 H (34.0-71.1) % Lymph % (Auto) 6.4 L (19.3-51.7) % [place] % (Auto) 12.7 H (4.7-12.5) % Eos % (Auto) 0.5 L (0.7-5.8) Baso % (Auto) 0.2 (0.1-1.2) % Neut # (Auto) 10.20 H (1.56-6.13) K/mm3 Lymph # (Auto) 0.82 L (1.18-3.74) K/mm3 [place] # (Auto) 1.62 H (0.24-0.36) K/mm3 Eos # (Auto) 0.06 (0.04-0.36) K/mm3 Baso # (Auto) 0.02 (0.01-0.08) K/mm3 Manual Slide Review Abnormal smear Sodium (136-145) mEq/L Potassium (3.5-5.1) mEq/L Chloride (98-107) mEq/L Carbon Dioxide (21-32) mEq/L Anion Gap (5-15) BUN (7-18) mg/dL Creatinine (0.55-1.02) mg/dL Est Cr Clr Drug Dosing mL/min Estimated GFR (MDRD) (>60) mL/min BUN/Creatinine Ratio (14-18) Glucose (74-106) mg/dL Lactic Acid 0.6 (0.4-2.0) mmol/L Calcium (8.5-10.1) mg/dL Magnesium (1.8-2.4) mg/dl C-Reactive Protein (<1.0) mg/dL Procalcitonin (<0.10) ng/mL Blood Type Gel Antibody Screen Crossmatch 10/27/18 Range/Units 06:45 WBC (3.98-10.04) K/mm3 RBC (3.98-5.22) M/mm3 Hgb (11.2-15.7) gm/L Hct (34.1-44.9) % MCV (79.4-94.8) fl MCH (25.6-32.2) pg MCHC (32.2-35.5) g/dl RDW Std Deviation (36.4-46.3) fL Plt Count (182-369) K/mm3 MPV (9.4-12.3) fl Neut % (Auto) (34.0-71.1) % Lymph % (Auto) (19.3-51.7) % [place] % (Auto) (4.7-12.5) % Eos % (Auto) (0.7-5.8) Baso % (Auto) (0.1-1.2) % Neut # (Auto) (1.56-6.13) K/mm3 Lymph # (Auto) (1.18-3.74) K/mm3 [place] # (Auto) (0.24-0.36) K/mm3 Eos # (Auto) (0.04-0.36) K/mm3 Baso # (Auto) (0.01-0.08) K/mm3 Manual Slide Review Sodium 139 (136-145) mEq/L Potassium 4.0 (3.5-5.1) mEq/L Chloride 105 (98-107) mEq/L Carbon Dioxide 23 (21-32) mEq/L Anion Gap 15.0 (5-15) BUN 11 (7-18) mg/dL Creatinine 1.3 H (0.55-1.02) mg/dL Est Cr Clr Drug Dosing 49.69 mL/min Estimated GFR (MDRD) 54 (>60) mL/min BUN/Creatinine Ratio 8.5 L (14-18) Glucose 76 (74-106) mg/dL Lactic Acid (0.4-2.0) mmol/L Calcium 8.3 L (8.5-10.1) mg/dL Magnesium 2.0 (1.8-2.4) mg/dl C-Reactive Protein 14.7 H* (<1.0) mg/dL Procalcitonin (<0.10) ng/mL Blood Type Gel Antibody Screen Crossmatch Arnel Results Last 24 Hours: Microbiology 10/25/18 22:50 Aerobic Blood Culture - Preliminary Blood - Venous NO GROWTH AFTER 1 DAY Anaerobic Blood Culture - Preliminary NO GROWTH AFTER 1 DAY 10/25/18 22:10 Urine Culture - Preliminary Urine, Clean Catch Gram Negative Rods Med Orders - Current: Current Medications Acetaminophen (Tylenol) 650 mg PO Q4H PRN PRN Reason: Pain (Mild 1-3)/fever Acetaminophen/Butalbital/Caffeine (Fioricet 325-50-40 Mg) 1 tab PO Q6H PRN PRN Reason: Headache/Pain Hydrocodone Bitart/Acetaminophen ([place] 325-5 Mg) 1 tab PO Q4H PRN PRN Reason: Pain (moderate 4-6) Last Admin: 10/26/18 18:20 Dose: 1 tab Albuterol/Ipratropium (Duoneb 3.0-0.5 Mg/3 Ml) 3 ml NEB Q4H PRN PRN Reason: Shortness Of Breath/wheezing Bisacodyl (Dulcolax) 5 mg PO DAILY PRN PRN Reason: Constipation Famotidine (Pepcid) 20 mg PO BID [facility] Last Admin: 10/26/18 20:42 Dose: 20 mg Hydralazine HCl (Apresoline) 20 mg IVPUSH Q4H PRN PRN Reason: Hypertension Hydrochlorothiazide (Hydrochlorothiazide) 12.5 mg PO DAILY [facility] Last Admin: 10/26/18 10:25 Dose: 12.5 mg Hydromorphone HCl (Dilaudid) 0.5 mg IVPUSH Q4H PRN PRN Reason: Pain (severe 7-10) Last Admin: 10/26/18 05:24 Dose: 0.5 mg Sodium Chloride (Normal Saline) 1,000 mls @ 75 mls/hr IV ASDIRECTED [facility] Last Admin: 10/26/18 20:32 Dose: 75 mls/hr Piperacillin Sod/Tazobactam (Sod 4.5 gm/ Sodium Chloride) 100 mls @ 25 mls/hr IV Q8H [facility] Last Admin: 10/27/18 01:38 Dose: 25 mls/hr Vancomycin HCl 1 gm/Vancomycin HCl 250 mg/ Sodium Chloride 250 mls @ 166.667 mls/hr IV Q12H [facility] Last Admin: 10/26/18 22:53 Dose: 166.667 mls/hr Ketorolac Tromethamine (Toradol) 30 mg IVPUSH Q6H [facility] Last Admin: 10/27/18 07:24 Dose: 30 mg Lorazepam (Ativan) 1 mg IV Q6H PRN PRN Reason: Anxiety Last Admin: 10/26/18 14:22 Dose: 1 mg Magnesium Sulfate (Pharmacy To Dose - Magnesium Replacement) 1 dose .XX ASDIRECTED [facility] Metoprolol Tartrate (Lopressor) 5 mg IVPUSH Q4H PRN PRN Reason: Tachycardia Ondansetron HCl (Zofran) 4 mg IV Q6H PRN PRN Reason: Nausea/Vomiting Last Admin: 10/27/18 07:27 Dose: 4 mg Oxycodone HCl (Oxycontin) 10 mg PO Q12HR [facility] Last Admin: 10/26/18 20:41 Dose: 10 mg Polyethylene Glycol (Miralax) 17 gm PO DAILY PRN PRN Reason: Constipation Polysaccharide Iron Complex (Ferrex 150) 150 mg PO DAILY [facility] Last Admin: 10/26/18 09:19 Dose: 150 mg Potassium Chloride (Pharmacy To Dose - Potassium Replacement) 1 dose .XX ASDIRECTED [facility] Saccharomyces Boulardii (Florastor) 250 mg PO BID [facility] Last Admin: 10/26/18 20:41 Dose: 250 mg Temazepam (Restoril) 7.5 mg PO BEDTIME PRN PRN Reason: Sleep Tramadol HCl (Ultram) 100 mg PO Q6H PRN PRN Reason: Pain (moderate 4-6) Last Admin: 10/26/18 04:26 Dose: 100 mg Vancomycin HCl (Pharmacy To Dose - Vancomycin) 1 dose .XX ASDIRECTED [facility] Discontinued Medications Diphenhydramine HCl (Benadryl) 25 mg IVPUSH ONETIME ONE Stop: 10/26/18 08:28 Last Admin: 10/26/18 09:18 Dose: Not Given Gadobenate Dimeglumine (Multihance) 20 ml IVPUSH ONETIME ONE Stop: 10/26/18 15:08 Last Admin: 10/26/18 15:49 Dose: 20 ml Hydromorphone HCl (Dilaudid) 0.5 mg IVPUSH ONETIME ONE Stop: 10/25/18 19:03 Last Admin: 10/25/18 20:34 Dose: 0.5 mg Ceftriaxone Sodium 1 gm/ (Sodium Chloride) 100 mls @ 200 mls/hr IV Q24H [facility] Last Admin: 10/25/18 20:34 Dose: 200 mls/hr Sodium Chloride (Normal Saline) 1,000 mls @ 999 mls/hr IV ASDIRECTED [facility] Last Admin: 10/25/18 20:33 Dose: 999 mls/hr Sodium Chloride (Normal Saline) 1,000 mls @ 125 mls/hr IV ASDIRECTED [facility] Last Admin: 10/26/18 06:37 Dose: 125 mls/hr Ceftriaxone Sodium 1 gm/ (Sodium Chloride) 100 mls @ 200 mls/hr IV Q24H [facility] Piperacillin Sod/Tazobactam (Sod 4.5 gm/ Sodium Chloride) 100 mls @ 25 mls/hr IV Q8H [facility] Last Admin: 10/26/18 21:51 Dose: Not Given Piperacillin Sod/Tazobactam (Sod 4.5 gm/ Sodium Chloride) 100 mls @ 200 mls/hr IV ONETIME ONE Stop: 10/25/18 23:29 Last Admin: 10/26/18 00:09 Dose: 200 mls/hr Sodium Chloride (Normal Saline) Confirm Administered Dose 100 mls @ as directed .ROUTE .STK-MED ONE Stop: 10/26/18 00:04 Last Admin: 10/26/18 05:12 Dose: Not Given Ferric Sodium Gluconate Complex 250 mg/ Sodium Chloride 120 mls @ 60 mls/hr IV ONETIME ONE Stop: 10/26/18 10:26 Sodium Chloride (Normal Saline) 500 mls @ 999 mls/min IV .BOLUS ONE Stop: 10/26/18 12:01 Last Admin: 10/26/18 21:51 Dose: Not Given Ceftriaxone Sodium 2 gm/ (Sodium Chloride) 100 mls @ 200 mls/hr IV Q24H [facility] Vancomycin HCl 1 gm/Vancomycin HCl 250 mg/ Sodium Chloride 250 mls @ 166.667 mls/hr IV Q12H [facility] Last Admin: 10/26/18 21:51 Dose: Not Given Lisinopril (Prinivil) 10 mg PO DAILY [facility] Last Admin: 10/26/18 10:27 Dose: 10 mg Methylprednisolone Sodium Succinate (Solu-Medrol) 40 mg IVPUSH ONETIME ONE Stop: 10/26/18 08:29 Last Admin: 10/26/18 09:18 Dose: Not Given Ondansetron HCl (Zofran) 4 mg IVPUSH ONETIME ONE Stop: 10/25/18 19:03 Last Admin: 10/25/18 20:33 Dose: 4 mg Potassium Chloride (Klor-Con M20) 40 meq PO BID [facility] Stop: 10/26/18 21:01 Last Admin: 10/26/18 20:40 Dose: 40 meq Scopolamine (Transderm-Scop) 1.5 mg TRDERM Q72H ONE Stop: 10/25/18 22:23 Last Admin: 10/25/18 23:48 Dose: 1.5 mg Sodium Chloride (Saline Flush) 10 ml FLUSH ASDIRECTED [facility] Stop: 10/26/18 18:00 Last Admin: 10/26/18 15:49 Dose: 10 ml - Exam Quality Assessment: DVT Prophylaxis General: Alert, Oriented, Cooperative, No Acute Distress HEENT: Pupils Equal, Pupils Reactive, EOMI, Mucous Membr. Moist/Shields Lungs: Clear to Auscultation, Normal Respiratory Effort Cardiovascular: Regular Rate, Regular Rhythm GI/Abdominal Exam: Normal Bowel Sounds, Soft, Non-Tender, No Distention, No Abnormal Bruit (Female) Exam: Deferred Back Exam: Normal Inspection, Full Range of Motion Extremities: Normal Inspection, Normal Range of Motion, Non-Tender, No Pedal Edema, Normal Capillary Refill Peripheral Pulses: 3+: Radial (L), Radial (R), Dorsalis Pedis (L), Dorsalis Pedis (R) Skin: Warm, Dry, Intact Neurological: No New Focal Deficit Psy/Mental Status: Alert, Normal Affect, Normal Mood - Problem List & Annotations (1) Pyelonephritis SNOMED Code(s): 93274586 Code(s): N12 - TUBULO-INTERSTITIAL NEPHRITIS, NOT SPCF ACUTE OR CHRONIC Status: Acute Priority: High Current Visit: Yes (2) Anemia SNOMED Code(s): 418934603 Code(s): D64.9 - ANEMIA, UNSPECIFIED Status: Acute Priority: High Current Visit: Yes Qualifiers: Anemia type: iron deficiency Iron deficiency anemia type: unspecified iron deficiency Qualified Code(s): D50.9 - Iron deficiency anemia, unspecified (3) Bilateral flank pain SNOMED Code(s): 231186220 Code(s): R10.9 - UNSPECIFIED ABDOMINAL PAIN Status: Acute Priority: High Current Visit: Yes - Problem List Review Problem List Initiated/Reviewed/Updated: Yes - My Orders Last 24 Hours: My Active Orders 10/26/18 07:15 OCCULT BLOOD DIAGNOSTIC [OP] Routine 10/26/18 07:54 May Shower [RC] ASDIRECTED Consult to Artificial Pearl Maker [CONS] Routine Consult to Spiritual Care [CONS] Routine 10/26/18 09:00 Iron Polysaccharides Complex [Ferrex 150] 150 mg PO DAILY 10/26/18 11:03 Transfuse Red Blood Cells [COMM] Routine 10/26/18 14:15 Ketorolac [Toradol] 30 mg IVPUSH Q6H 10/26/18 15:00 Pharmacy to Dose - Vancomycin 1 dose .XX ASDIRECTED 10/26/18 22:00 Vancomycin 1 gm Vancomycin 250 mg Sodium Chloride 0.9% [Normal Saline] 250 ml IV Q12H 10/28/18 05:11 CRP [C-REACTIVE PROTEIN] [CHEM] AM 10/29/18 05:11 CRP [C-REACTIVE PROTEIN] [CHEM] AM 10/30/18 05:11 CRP [C-REACTIVE PROTEIN] [CHEM] AM - Plan Plan:: I/P: Acute: Pyelonephritis -Reports urgency and increased frequency, fever, nausea, vomiting -Back pain that started a few days ago, has increased in frequency, and radiates bilaterally around flank, through abdomen, and into groin -Pain is 9/10 -Bilateral CVA tenderness -WBC 23.01-->12.75 -CRP 15.1-->14.7 -CT scan at [facility] (10/25/18) suggests pyelonephritis. Left greater than right, No evidence of abscess, No obvious urinary calculus -UA at [facility] (10/25/18): 21-50 WBCs, 11-30 RBCs, Moderate bacteria, Moderate LE, 100mg/dl Protein -Repeat UA in ED (10/25/18): Cloudy urine with 1+ protein, 1+ occult blood, 1 + leukocyte esterase, 20-30 WBCs, 10-20 epithelial cells -Urine culture shows gram negative rods -Obtain urine culture from [facility] if done -Started on 1gm Rocephin -> Stop -Zosyn and vancomycin started -> stop vancomycin -IV fluids as ordered -Blood cultures negative -Lactic acid 0.6 -Pain medications as ordered -Probiotic -Antiemetics for nausea -Tylenol for fever Anemia -Hgb noted to be 7.9 at [facility] (10/25/18) -Hgb 7.2 on 10/26/17, Repeat 7.1 -->8.9 -Given 2 units of blood on floor -Occult stool ordered -Iron panel: Iron 8, TIBC 254, % saturation 3, transferrin 203 -Reports very heavy periods since tubal ligation, needs to tape 2 pads together -Last menstrual cycle occurred at beginning of month, lasting 4-5 days -Continue to monitor Irregular CT scan on 10/25/[address] [facility] -"Mild irregularity involving the inferior endplate of L5. Findings are likely degenerative or related to Schmorl's node formation, but if clinical concern for discitis osteomyelitis, correlation with lumbar spine MR could be useful. -Based on severe pain and clinical picture will order MRI of lumbar spine - suggested by Dr. Angeles -Also noted "irregularity of the sacroiliac joints bilateral (series 4, image 63). 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
[2018-10-27] MEDS: Saccharomyces Boulardii (Probiotic) 250 MG Cap PO SCH ×2 (08:19→20:47)
[2018-10-27] MEDS: Famotidine 20 MG Tab PO SCH ×2 (08:19→20:47)
[2018-10-27] MEDS: Hydrochlorothiazide 12.5 MG Cap PO SCH (08:19)
[2018-10-27] MEDS: oxyCODONE ER 10 MG TAB.ER PO SCH ×2 (08:19→20:47)
[2018-10-27] MEDS: Iron Polysaccharides Complex 150 MG Cap PO SCH (08:19)
[2018-10-27] MEDS: Sodium Chloride 0.9% 1,000 ML IV SCH ×2 (09:24→22:51)
[2018-10-28] MEDS: Ketorolac 30 MG/ML SDV IVPUSH SCH ×4 (02:27→20:40)
[2018-10-28] MEDS: Piperacillin/Tazobactam 4.5 GM in Sodium Chloride 0.9% 100 ML IV SCH ×2 (02:30→09:31)
[2018-10-28] MEDS: oxyCODONE ER 10 MG TAB.ER PO SCH ×2 (09:30→20:38)
[2018-10-28] MEDS: Famotidine 20 MG Tab PO SCH ×2 (09:31→20:39)
[2018-10-28] MEDS: Hydrochlorothiazide 12.5 MG Cap PO SCH (09:31)
[2018-10-28] MEDS: Iron Polysaccharides Complex 150 MG Cap PO SCH (09:31)
[2018-10-28] MEDS: Saccharomyces Boulardii (Probiotic) 250 MG Cap PO SCH ×2 (09:31→20:38)
[2018-10-28] MEDS: Sodium Chloride 0.9% 1,000 ML IV SCH (10:57)
[2018-10-28] MEDS ORDERED: Furosemide 20 MG/2 ML VIAL IVPUSH ONE (12:30)
[2018-10-28] MEDS ORDERED: Dexamethasone 4 MG/ML SDV IVPUSH ONE (12:30)
[2018-10-28] MEDS: Ondansetron 4 MG/2 ML SDV IV PRN (12:41)
--- NOTE | 2018-10-28 14:06 | PCM.SN ---
- Free Text/Narrative Note: During rounds we had an interesting encounter with the patient's advocate regarding the care she has been getting here and the work up she wants us to do regarding Tracy's low Hgb level. We did re-assure her that we will follow hospital protocol for blood transfusion and consult our on-agusto [employer] Climber specialist for further evaluation. Our plan is, if stable and ready for discharge tomorrow, she will go straight up to the clinic for follow up appointment. Spoke to Dr. Oscar, he will be here to evaluate patient for spotting observed last night.
--- NOTE | 2018-10-28 14:58 | PCM.PN ---
- General Info Date of Service: 10/28/18 Admission Dx/Problem (Free Text): Admission Diagnosis/Problem Admission Diagnosis/Problem Pyelonephritis Subjective Update: In to see Taylor. She is improving daily. 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 Her boss is advocating for her and would like to know our plan. She is quite excited out our responses and has many questions. Assured her that we are providing the absolute best care we can with the resources we have. Assured her that we are not skimping on services because Taylor has no insurance but we are also very cautious to not give her a large bill with unnecessary testing. Her reticulocyte count is normal. Her occult stool is negative. Her abdominal CT scan did not show any signs of bleeding. She reports extremely heavy menses since having a tubal ligation. So much so that she has to tape 2 pads together. Because of all this we will order an BENEFITS CONSULTING ANALYST consult. We will also order an iron infusion. We also alerted SW to ensure she is receiving appropriate services. Lastly, Myself, Dr. Angeles, and charge nurse Stephanie Dominguez have been in multiple times to reassure Taylor we are providing the absolute best care we can here and answer all questions. Discussed case with Dr. Oscar who relays that this is in fact a common occurrence. He is going to review CT scan and if needed order an abdominal ultrasound. We will then start her on medications if needed. Functional Status: Reports: Pain Controlled, Tolerating Diet, Ambulating, Urinating. Denies: New Symptoms - Review of Systems General: Reports: Weakness (improved ). Denies: Fever, Fatigue, Malaise, Chills HEENT: Reports: No Symptoms. Denies: Headaches, Sore Throat Pulmonary: Reports: No Symptoms. Denies: Shortness of Breath, Cough, Sputum Cardiovascular: Reports: No Symptoms. Denies: Chest Pain, Palpitations, Orthopnea, Edema Gastrointestinal: Reports: Abdominal Pain (improving ). Denies: Constipation, Diarrhea, Nausea, Vomiting Genitourinary: Reports: Flank Pain (improving ) Musculoskeletal: Reports: No Symptoms Skin: Reports: No Symptoms. Denies: Cyanosis Neurological: Reports: No Symptoms. Denies: Confusion, Numbness, Pre-Existing Deficit, Difficulty Walking, Weakness, Gait Disturbance Psychiatric: Reports: No Symptoms - Patient Data Vitals - Most Recent: Last Vital Signs Temp 98.1 F 10/28/18 07:20 Pulse 68 10/28/18 07:20 Resp 15 10/28/18 07:20 BP 142/69 H 10/28/18 07:20 Pulse Ox 94 L 10/28/18 07:20 Weight - Most Recent: 241 lb 9.6 oz I&O - Last 24 Hours: Intake & Output 10/27/18 10/28/18 10/28/18 22:59 06:59 14:59 Intake Total 1883 2242 440 Output Total 700 750 Balance 1183 1492 440 Lab Results Last 24 Hours: Laboratory Results - last 24 hr 10/28/18 10/28/18 Range/Units 05:55 05:55 WBC 7.95 (3.98-10.04) K/mm3 RBC 4.59 (3.98-5.22) M/mm3 Hgb 8.7 L (11.2-15.7) gm/L Hct 28.9 L (34.1-44.9) % MCV 63.0 L (79.4-94.8) fl MCH 19.0 L (25.6-32.2) pg MCHC 30.1 L (32.2-35.5) g/dl RDW Std Deviation 53.3 H (36.4-46.3) fL Plt Count 223 (182-369) K/mm3 MPV 10.1 (9.4-12.3) fl Neut % (Auto) 62.5 (34.0-71.1) % Lymph % (Auto) 19.2 L (19.3-51.7) % [place] % (Auto) 15.5 H (4.7-12.5) % Eos % (Auto) 2.4 (0.7-5.8) Baso % (Auto) 0.1 (0.1-1.2) % Neut # (Auto) 4.97 (1.56-6.13) K/mm3 Lymph # (Auto) 1.53 (1.18-3.74) K/mm3 [place] # (Auto) 1.23 H (0.24-0.36) K/mm3 Eos # (Auto) 0.19 (0.04-0.36) K/mm3 Baso # (Auto) 0.01 (0.01-0.08) K/mm3 Manual Slide Review Abnormal smear Sodium 140 (136-145) mEq/L Potassium 3.8 (3.5-5.1) mEq/L Chloride 106 (98-107) mEq/L Carbon Dioxide 24 (21-32) mEq/L Anion Gap 13.8 (5-15) BUN 10 (7-18) mg/dL Creatinine 1.2 H (0.55-1.02) mg/dL Est Cr Clr Drug Dosing 53.75 mL/min Estimated GFR (MDRD) 59 (>60) mL/min BUN/Creatinine Ratio 8.3 L (14-18) Glucose 90 (74-106) mg/dL Calcium 8.4 L (8.5-10.1) mg/dL Magnesium 1.9 (1.8-2.4) mg/dl C-Reactive Protein 9.5 H* (<1.0) mg/dL Arnel Results Last 24 Hours: Microbiology 10/26/18 09:20 Stool Occult Blood (ARNEL) - Final Stool / Feces 10/25/18 23:00 Aerobic Blood Culture - Preliminary Blood - Venous - Lab Draw NO GROWTH AFTER 2 DAYS Anaerobic Blood Culture - Preliminary NO GROWTH AFTER 2 DAYS 10/25/18 22:50 Aerobic Blood Culture - Preliminary Blood - Venous NO GROWTH AFTER 2 DAYS Anaerobic Blood Culture - Preliminary NO GROWTH AFTER 2 DAYS 10/25/18 22:10 Urine Culture - Final Urine, Clean Catch Escherichia Coli Med Orders - Current: Current Medications Acetaminophen (Tylenol) 650 mg PO Q4H PRN PRN Reason: Pain (Mild 1-3)/fever Acetaminophen/Butalbital/Caffeine (Fioricet 325-50-40 Mg) 1 tab PO Q6H PRN PRN Reason: Headache/Pain Hydrocodone Bitart/Acetaminophen ([place] 325-5 Mg) 1 tab PO Q4H PRN PRN Reason: Pain (moderate 4-6) Last Admin: 10/26/18 18:20 Dose: 1 tab Albuterol/Ipratropium (Duoneb 3.0-0.5 Mg/3 Ml) 3 ml NEB Q4H PRN PRN Reason: Shortness Of Breath/wheezing Bisacodyl (Dulcolax) 5 mg PO DAILY PRN PRN Reason: Constipation Last Admin: 10/27/18 20:59 Dose: 5 mg Famotidine (Pepcid) 20 mg PO BID [facility] Last Admin: 10/28/18 09:31 Dose: 20 mg Hydralazine HCl (Apresoline) 20 mg IVPUSH Q4H PRN PRN Reason: Hypertension Hydrochlorothiazide (Hydrochlorothiazide) 12.5 mg PO DAILY [facility] Last Admin: 10/28/18 09:31 Dose: 12.5 mg Hydromorphone HCl (Dilaudid) 0.5 mg IVPUSH Q4H PRN PRN Reason: Pain (severe 7-10) Last Admin: 10/26/18 05:24 Dose: 0.5 mg Ceftriaxone Sodium 1 gm/ (Sodium Chloride) 100 mls @ 200 mls/hr IV Q24H [facility] Ferric Sodium Gluconate Complex 250 mg/ Sodium Chloride 120 mls @ 60 mls/hr IV ONETIME ONE Stop: 10/28/18 15:29 Last Admin: 10/28/18 14:46 Dose: 60 mls/hr Ketorolac Tromethamine (Toradol) 30 mg IVPUSH Q6H [facility] Last Admin: 10/28/18 13:43 Dose: 30 mg Lorazepam (Ativan) 1 mg IV Q6H PRN PRN Reason: Anxiety Last Admin: 10/26/18 14:22 Dose: 1 mg Magnesium Sulfate (Pharmacy To Dose - Magnesium Replacement) 1 dose .XX ASDIRECTED [facility] Metoprolol Tartrate (Lopressor) 5 mg IVPUSH Q4H PRN PRN Reason: Tachycardia Ondansetron HCl (Zofran) 4 mg IV Q6H PRN PRN Reason: Nausea/Vomiting Last Admin: 10/28/18 12:41 Dose: 4 mg Oxycodone HCl (Oxycontin) 10 mg PO Q12HR [facility] Last Admin: 10/28/18 09:30 Dose: 10 mg Polyethylene Glycol (Miralax) 17 gm PO DAILY PRN PRN Reason: Constipation Polysaccharide Iron Complex (Ferrex 150) 150 mg PO DAILY [facility] Last Admin: 10/28/18 09:31 Dose: 150 mg Potassium Chloride (Pharmacy To Dose - Potassium Replacement) 1 dose .XX ASDIRECTED [facility] Saccharomyces Boulardii (Florastor) 250 mg PO BID [facility] Last Admin: 10/28/18 09:31 Dose: 250 mg Temazepam (Restoril) 7.5 mg PO BEDTIME PRN PRN Reason: Sleep Tramadol HCl (Ultram) 100 mg PO Q6H PRN PRN Reason: Pain (moderate 4-6) Last Admin: 10/26/18 04:26 Dose: 100 mg Discontinued Medications Dexamethasone (Dexamethasone) 4 mg IVPUSH ONETIME ONE Stop: 10/28/18 12:31 Last Admin: 10/28/18 12:41 Dose: 4 mg Diphenhydramine HCl (Benadryl) 25 mg IVPUSH ONETIME ONE Stop: 10/26/18 08:28 Last Admin: 10/26/18 09:18 Dose: Not Given Furosemide (Lasix) 40 mg IVPUSH ONETIME ONE Stop: 10/28/18 12:31 Last Admin: 10/28/18 12:41 Dose: 40 mg Gadobenate Dimeglumine (Multihance) 20 ml IVPUSH ONETIME ONE Stop: 10/26/18 15:08 Last Admin: 10/26/18 15:49 Dose: 20 ml Hydromorphone HCl (Dilaudid) 0.5 mg IVPUSH ONETIME ONE Stop: 10/25/18 19:03 Last Admin: 10/25/18 20:34 Dose: 0.5 mg Ceftriaxone Sodium 1 gm/ (Sodium Chloride) 100 mls @ 200 mls/hr IV Q24H [facility] Last Admin: 10/25/18 20:34 Dose: 200 mls/hr Sodium Chloride (Normal Saline) 1,000 mls @ 999 mls/hr IV ASDIRECTED [facility] Last Admin: 10/25/18 20:33 Dose: 999 mls/hr Sodium Chloride (Normal Saline) 1,000 mls @ 125 mls/hr IV ASDIRECTED [facility] Last Admin: 10/26/18 06:37 Dose: 125 mls/hr Ceftriaxone Sodium 1 gm/ (Sodium Chloride) 100 mls @ 200 mls/hr IV Q24H [facility] Piperacillin Sod/Tazobactam (Sod 4.5 gm/ Sodium Chloride) 100 mls @ 25 mls/hr IV Q8H [facility] Last Admin: 10/26/18 21:51 Dose: Not Given Piperacillin Sod/Tazobactam (Sod 4.5 gm/ Sodium Chloride) 100 mls @ 200 mls/hr IV ONETIME ONE Stop: 10/25/18 23:29 Last Admin: 10/26/18 00:09 Dose: 200 mls/hr Sodium Chloride (Normal Saline) Confirm Administered Dose 100 mls @ as directed .ROUTE .STK-MED ONE Stop: 10/26/18 00:04 Last Admin: 10/26/18 05:12 Dose: Not Given Ferric Sodium Gluconate Complex 250 mg/ Sodium Chloride 120 mls @ 60 mls/hr IV ONETIME ONE Stop: 10/26/18 10:26 Last Admin: 10/27/18 09:57 Dose: Not Given Sodium Chloride (Normal Saline) 500 mls @ 999 mls/min IV .BOLUS ONE Stop: 10/26/18 12:01 Last Admin: 10/26/18 21:51 Dose: Not Given Sodium Chloride (Normal Saline) 1,000 mls @ 75 mls/hr IV ASDIRECTED [facility] Last Admin: 10/28/18 10:57 Dose: 75 mls/hr Ceftriaxone Sodium 2 gm/ (Sodium Chloride) 100 mls @ 200 mls/hr IV Q24H [facility] Vancomycin HCl 1 gm/Vancomycin HCl 250 mg/ Sodium Chloride 250 mls @ 166.667 mls/hr IV Q12H [facility] Last Admin: 10/26/18 21:51 Dose: Not Given Piperacillin Sod/Tazobactam (Sod 4.5 gm/ Sodium Chloride) 100 mls @ 25 mls/hr IV Q8H [facility] Stop: 10/28/18 14:00 Last Admin: 10/28/18 09:31 Dose: 25 mls/hr Vancomycin HCl 1 gm/Vancomycin HCl 250 mg/ Sodium Chloride 250 mls @ 166.667 mls/hr IV Q12H [facility] Last Admin: 10/26/18 22:53 Dose: 166.667 mls/hr Iron Sucrose 200 mg/ Sodium (Chloride) 260 mls @ 83 mls/hr IV ONETIME ONE Stop: 10/28/18 15:04 Last Admin: 10/28/18 12:09 Dose: Not Given Lisinopril (Prinivil) 10 mg PO DAILY [facility] Last Admin: 10/26/18 10:27 Dose: 10 mg Methylprednisolone Sodium Succinate (Solu-Medrol) 40 mg IVPUSH ONETIME ONE Stop: 10/26/18 08:29 Last Admin: 10/26/18 09:18 Dose: Not Given Ondansetron HCl (Zofran) 4 mg IVPUSH ONETIME ONE Stop: 10/25/18 19:03 Last Admin: 10/25/18 20:33 Dose: 4 mg Potassium Chloride (Klor-Con M20) 40 meq PO BID [facility] Stop: 10/26/18 21:01 Last Admin: 10/26/18 20:40 Dose: 40 meq Scopolamine (Transderm-Scop) 1.5 mg TRDERM Q72H ONE Stop: 10/25/18 22:23 Last Admin: 10/25/18 23:48 Dose: 1.5 mg Sodium Chloride (Saline Flush) 10 ml FLUSH ASDIRECTED [facility] Stop: 10/26/18 18:00 Last Admin: 10/26/18 15:49 Dose: 10 ml Vancomycin HCl (Pharmacy To Dose - Vancomycin) 1 dose .XX ASDIRECTED [facility] - Exam Quality Assessment: DVT Prophylaxis General: Alert, Oriented, Cooperative, No Acute Distress HEENT: Pupils Equal, Pupils Reactive, EOMI, Mucous Membr. Moist/[place] Neck: Supple, Trachea Midline, No JVD Lungs: Clear to Auscultation, Normal Respiratory Effort Cardiovascular: Regular Rate, Regular Rhythm GI/Abdominal Exam: Normal Bowel Sounds, Soft, No Organomegaly, No Distention, Tender (Improving) (Female) Exam: Deferred Back Exam: Normal Inspection, Full Range of Motion Extremities: Normal Inspection, Normal Range of Motion, Non-Tender, No Pedal Edema, Normal Capillary Refill Peripheral Pulses: 2+: Radial (L), Radial (R), Dorsalis Pedis (L), Dorsalis Pedis (R) Skin: Warm, Dry, Intact Neurological: No New Focal Deficit Psy/Mental Status: Alert, Normal Affect, Anxious - Problem List & Annotations (1) Pyelonephritis SNOMED Code(s): 48998587 Code(s): N12 - TUBULO-INTERSTITIAL NEPHRITIS, NOT SPCF ACUTE OR CHRONIC Status: Acute Priority: High Current Visit: Yes (2) Anemia SNOMED Code(s): 415231062 Code(s): D64.9 - ANEMIA, UNSPECIFIED Status: Acute Priority: High Current Visit: Yes Qualifiers: Anemia type: iron deficiency Iron deficiency anemia type: unspecified iron deficiency Qualified Code(s): D50.9 - Iron deficiency anemia, unspecified (3) Bilateral flank pain SNOMED Code(s): 239143067 Code(s): R10.9 - UNSPECIFIED ABDOMINAL PAIN Status: Acute Priority: High Current Visit: Yes (4) Adnexal cyst SNOMED Code(s): 45470023095202 Code(s): N94.9 - UNSP COND ASSOC W FEMALE GENITAL ORGANS AND MENSTRUAL CYCLE Status: Acute Priority: Medium Current Visit: Yes (5) Bilateral sacroiliitis SNOMED Code(s): 10426753 Code(s): M46.1 - SACROILIITIS, NOT ELSEWHERE CLASSIFIED Status: Acute Priority: High Current Visit: Yes - Problem List Review Problem List Initiated/Reviewed/Updated: Yes - My Orders Last 24 Hours: My Active Orders 10/27/18 14:30 Consult to Occupational Therapy [OT Evaluation and Treatment] [CONS] Routine PT Evaluation and Treatment [CONS] Routine 10/28/18 13:30 Sodium Ferric Gluconat/Sucrose [Sodium Ferric Gluc Cplx 62.5 MG/5 ML] 250 mg Sodium Chloride 0.9% [Normal Saline] 100 ml IV ONETIME 10/28/18 17:00 cefTRIAXone [Rocephin] 1 gm Sodium Chloride 0.9% [Normal Saline] 100 ml IV Q24H 10/29/18 05:11 CRP [C-REACTIVE PROTEIN] [CHEM] AM 10/30/18 05:11 CRP [C-REACTIVE PROTEIN] [CHEM] AM - Plan Plan:: I/P: Acute: Pyelonephritis -Reports urgency and increased frequency, fever, nausea, vomiting -Back pain that started a few days ago, has increased in frequency, and radiates bilaterally around flank, through abdomen, and into groin -Pain is 9/10 -Bilateral CVA tenderness -WBC 23.01-->12.75-->7.95 -CRP 15.1-->14.7-->9.5 -CT scan at [place] (10/25/18) suggests pyelonephritis. Left greater than right, No evidence of abscess, No obvious urinary calculus -UA at [place] (10/25/18): 21-50 WBCs, 11-30 RBCs, Moderate bacteria, Moderate LE, 100mg/dl Protein -Repeat UA in ED (10/25/18): Cloudy urine with 1+ protein, 1+ occult blood, 1 + leukocyte esterase, 20-30 WBCs, 10-20 epithelial cells -Urine culture shows gram negative rods -Obtain urine culture from [place] if done -Started on 1gm Rocephin -> Stopped -Zosyn and vancomycin started -> stop vancomycin--> stop zosyn and de- escalate to 1gm rocephin daily -IV fluids as ordered -Blood cultures negative -Lactic acid 0.6 -Pain medications as ordered -Probiotic -Antiemetics for nausea -Tylenol for fever Anemia -Hgb noted to be 7.9 at [place] (10/25/18) -Hgb 7.2 on 10/26/17, Repeat 7.1 -->8.9-->8.7 -Given 2 units of blood on floor -Occult stool ordered -Iron panel: Iron 8, TIBC 254, % saturation 3, transferrin 203 -Iron infusion -Reports very heavy periods since tubal ligation, needs to tape 2 pads together -OB consult ordered - Dr. Oscar -Last menstrual cycle occurred at beginning of month, lasting 4-5 days -Reportedly awoke and found to have small amount of blood on pad -Continue to monitor Irregular CT scan on 10/25/18 at [facility] -"Mild irregularity involving the inferior endplate of L5. Findings are likely degenerative or related to Schmorl's node formation, but if clinical concern for discitis osteomyelitis, correlation with lumbar spine MR could be useful. -Based on severe pain and clinical picture will order MRI of lumbar spine - suggested by Dr. Angeles -Also noted "irregularity of the sacroiliac joints bilateral (series 4, image 63). CT findings are suggestive of changes from sacroiliitis" -Will order Toradol for inflammation -"Left adnexal cyst measuring up to 2.5 cm" -Suggest BENEFITS CONSULTING ANALYST follow-up at discharge Resolved: Hypokalemia -Potassium 3.0-->4.0 -Supplement Chronic: HTN Hiatal hernia Prior Inguinal hernia with surgical repair Plan: Admit to medical floor observation status Other orders as indicated above Home medications as ordered Routine AM labs Ambulate DVT prophylaxis: SCDs Code status: Full code; PCP: None in area - travels here for work; Appointment made for Dr. Abraham, [facility]
--- NOTE | 2018-10-28 16:34 | PCM.CONS ---
H&P History of Present Illness - General Date of Service: 10/28/18 Admit Problem/Dx: Admission Diagnosis/Problem Admission Diagnosis/Problem Pyelonephritis Source of Information: Patient, Other History Limitations: Reports: No Limitations - History of Present Illness Initial Comments - Free Text/Narative: Taylor Is a 43-year-old 3 para 3002 -[place] female recently admitted to medical surgical unit for diagnosis of pyelonephritis. She was initially evaluated at [facility] at which time laboratory testing and a CT was performed. Diagnosis was pyelonephritis and patient was sent to the hospital for evaluation and therapy. On admit her temperatures found to be elevated. Her white blood count was 23.01. Hemoglobin and hematocrit were 7.2 and 24.7 respectively. Platelets are 295,000. Urinalysis was consistent with urinary tract infection. Her MCV 58.4 consistent with microcytic anemia. Patient was evaluated with clinical evaluation, further blood testing and an MRI of the spine which was unremarkable. Iron studies are pending at this time. Stool guaiacs were negative. Patient was that her anemia secondary to chronic blood loss anemia most probably secondary to her menstrual cycles. Patient reports her menstrual cycles be very heavy lasting up to 6 days and flowing enough where she uses 10 large, heavy duty pads per day with clot passage sometimes up to the size of her fist and with increased cramping consistent with dysmenorrhea. She denies bleeding from any other orifice. Patient was treated with 2 units of packed red blood cells which brought her hemoglobin to 8.7. I was asked to see the patient because of heavy bleedings and the history of anemia. [employer] history 3 para 3002 with deliveries including a male infant born 1986 via primary section. She had a stillborn in 1993 at 24 weeks gestational age. She had a female born in 2005 by repeat section at term. Menarche at age 11. Cycles every month. Duration 6 days. Heavy flow with clots and gushing with need for up to 10 pads per day. Last Pap smear in 2017 was normal. No abnormal ones reported by the patient. No STI's reported. She is not sexually active. Tubal ligation done at last for control. Past medical history: 1. Hypertension. 2. Hiatal hernia 3. has above 4. Vaginal delivery 1stillborn at 24 weeks 5. Obesity 6. Menorrhagia Past surgical history: 1. 2. 2. Inguinal hernia repair 3. 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 Mildred teeth extraction 5. Umbilical surgery as a baby 6. Bilateral tubal ligation with last section. Family history: Mother is secondary to motor vehicle accident a young age. Father is alive but is drug dependent. One sister with kidney disease awaiting a kidney transplant. One brother health unknown. No bleeding, blood clotting, cancer history reported by the patient. Social history: Patient is single. 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 She does not use any significant most alcohol, drugs, tobacco. She is region from [place] which she calls her home. She's been a [place] since July. She is planning on returning to [place] on 11/04. Review of systems: In general patient has complaints as outlined in history of present illness and in hospital admission history and physical.. Skin: Negative Lungs: No infectious symptoms or shortness of breath Cardiovascular: No chest pain or exercise intolerance Breasts: Negative GI: Negative : See history of present illness and [employer] history. Musculoskeletal: Negative Neurological: Negative Physical exam:In general the patient is well-developed, well-nourished, obese, pleasant female of stated age in no acute distress. Skin is warm dry without lesions. HEENT, neck and back within normal limits. Lungs are clear with good breath sounds in all lung yuan. Cardiovascular exam shows regular and rhythm without murmurs. Abdomen is morbidly obese, flat, soft, nontender without masses or organomegaly. Positive bowel sounds are noted. Scars present from a midline C- section scar. No inguinal lymphadenopathy or hernias are noted. Very difficult exam because of patient's obesity. Genital- patient does not appear that she would tolerate a speculum exam. Therefore exam is only Per bimanual. It shows normal external genitalia, BUS, pubic hair pattern. There is normal support, secretions and estrogenization vagina. Uterus is small, anterior, freely mobile, without parametrial induration or adnexal abnormalities. Exam our is suboptimal because of patient' s body habitus voluntary guarding. Extremities and neurological exam are grossly within normal limits except for edema in lower extremities.. Back Pain Score (Numeric/FACES): 9 - Related Data Allergies/Adverse Reactions: Allergies Allergy/AdvReac Type Severity Reaction Status Date / Time No Known Allergies Allergy Verified 10/25/18 18:47 Home Medications: Home Meds Lisinopril/Hydrochlorothiazide [Lisinopril-Hctz 10-12.5 mg Tab] 1 each PO DAILY 10/25/18 [History] Past Medical History Cardiovascular History: Reports: Hypertension Gastrointestinal History: Reports: Hiatal Hernia [employer] History: Reports: Other OB/BYN History: - Past Surgical History GI Surgical History: Reports: Hernia, Inguinal Musculoskeletal Surgical History: Reports: ORIF Other Musculoskeletal Surgeries/Procedures:: Right leg from was deformed and needed to be broke, fixed at that time. Social & Family History - Family History Family Medical History: Noncontributory - Tobacco Use Smoking Status *Q: Never Smoker Second Hand Smoke Exposure: No - Caffeine Use Caffeine Use: Reports: Soda - Recreational Drug Use Recreational Drug Use: No H&P Review of Systems - Review of Systems: Review Of Systems: See Below Exam - Exam Exam: See Below - Vital Signs Vital Signs: Last Vital Signs Temp 36.7 C 10/28/18 15:08 Pulse 72 10/28/18 15:08 Resp 16 10/28/18 15:08 BP 138/86 10/28/18 15:08 Pulse Ox 96 10/28/18 15:08 Weight: 109.588 kg - Patient Data Lab Results Last 24 hrs: Laboratory Results - last 24 hr 10/28/18 10/28/18 Range/Units 05:55 05:55 WBC 7.95 (3.98-10.04) K/mm3 RBC 4.59 (3.98-5.22) M/mm3 Hgb 8.7 L (11.2-15.7) gm/L Hct 28.9 L (34.1-44.9) % MCV 63.0 L (79.4-94.8) fl MCH 19.0 L (25.6-32.2) pg MCHC 30.1 L (32.2-35.5) g/dl RDW Std Deviation 53.3 H (36.4-46.3) fL Plt Count 223 (182-369) K/mm3 MPV 10.1 (9.4-12.3) fl Neut % (Auto) 62.5 (34.0-71.1) % Lymph % (Auto) 19.2 L (19.3-51.7) % Yell % (Auto) 15.5 H (4.7-12.5) % Eos % (Auto) 2.4 (0.7-5.8) Baso % (Auto) 0.1 (0.1-1.2) % Neut # (Auto) 4.97 (1.56-6.13) K/mm3 Lymph # (Auto) 1.53 (1.18-3.74) K/mm3 Yell # (Auto) 1.23 H (0.24-0.36) K/mm3 Eos # (Auto) 0.19 (0.04-0.36) K/mm3 Baso # (Auto) 0.01 (0.01-0.08) K/mm3 Manual Slide Review Abnormal smear Sodium 140 (136-145) mEq/L Potassium 3.8 (3.5-5.1) mEq/L Chloride 106 (98-107) mEq/L Carbon Dioxide 24 (21-32) mEq/L Anion Gap 13.8 (5-15) BUN 10 (7-18) mg/dL Creatinine 1.2 H (0.55-1.02) mg/dL Est Cr Clr Drug Dosing 53.75 mL/min Estimated GFR (MDRD) 59 (>60) mL/min BUN/Creatinine Ratio 8.3 L (14-18) Glucose 90 (74-106) mg/dL Calcium 8.4 L (8.5-10.1) mg/dL Magnesium 1.9 (1.8-2.4) mg/dl C-Reactive Protein 9.5 H* (<1.0) mg/dL Result Diagrams: 10/28/18 05:55 10/28/18 05:55 Arnel Results Last 24 hrs: Microbiology 10/26/18 09:20 Stool Occult Blood (ARNEL) - Final Stool / Feces 10/25/18 23:00 Aerobic Blood Culture - Preliminary Blood - Venous - Lab Draw NO GROWTH AFTER 2 DAYS Anaerobic Blood Culture - Preliminary NO GROWTH AFTER 2 DAYS 10/25/18 22:50 Aerobic Blood Culture - Preliminary Blood - Venous NO GROWTH AFTER 2 DAYS Anaerobic Blood Culture - Preliminary NO GROWTH AFTER 2 DAYS 10/25/18 22:10 Urine Culture - Final Urine, Clean Catch Escherichia Coli Consult PN Assessment/Plan Problem List Initiated/Reviewed/Updated: Yes Plan: Assessment: 1. History of menorrhagia 2. History of anemia which appears microcytic and probably related to chronic blood loss. Other potential causes of blood loss appeared to be ruled out and heavy menses appear to be the most probable cause of this anemia. 3. Increased weight making exam difficult. Patient is not tolerant of genital exam. 4. History of bilateral tubal ligation 5. Comorbidities including obesity, hypertension, history of previous surgeries 6. Patient denies sickle cell trait or sickle cell disease by her history. 7. Patient has had CT at [facility] but results for that CT are not available. Plan: 1. Patient has an abnormal peripheral smear which may be due to the severe chronic blood loss. May need to consider possibility of sickle cell trait or disease as a component of her overall anemia picture. 2. Recommend evaluation of uterus. We'll obtain CT records from [facility]. If these adequately assess the uterus and this is found to be normal no further studies are necessary, otherwise transvaginal ultrasound would be in order to rule out uterine pathology. 3. If ultrasound or CT scan rule out uterine pathology would recommend patient start on a oral progesterone in the form of Aygestin 10 mg by mouth daily days 16 through 25 of her menstrual cycle. She would continue this until she is seen by her local [facility] physician after she returns to her home in [place]. 4. Iron therapy in the form of ferrous sulfate 325 mg by mouth twice a day until blood count is returned to normal. 5. Await iron studies for complete evaluation.
[2018-10-28] MEDS ORDERED: cefTRIAXone 1 GM in Sodium Chloride 0.9% 100 ML IV SCH (17:00)
[2018-10-29] MEDS: Ketorolac 30 MG/ML SDV IVPUSH SCH ×3 (02:29→14:15)
--- NOTE | 2018-10-29 06:35 | PCM.DCSUM1 ---
Discharge Summary - Hospital Course HPI Initial Comments: Taylor Reid is a 43yo female who presented to our ED on 10/25/18 with a possible kidney infection. She reports she has had symptoms for a few days, which include nausea, vomiting, abdominal pain, and back pain. She presented to the walk-in clinic at [facility] today in the lab work. CBC showed a WBC elevated at 24. CT scan was obtained that did show bilateral pyelonephritis , worse on the left than on the right. She rated her pain at 9 out of 10 and reports she is not okay much food or water down. She reports a low-grade fever but denies any other urinary symptoms. Lab work performed [facility] was reviewed: WBC is 24.5. Hemoglobin 7.9. Hematocrit 26.8. She is microcytic. Pulses are good at 325,000. UA is obtained showing 21-50 WBCs, 11-30 RBCs, occasional epithelial cells, and moderate bacteria. 100 mg/dL protein and moderate leukocyte esterase are also noted. Neutrophils are noted to be elevated at 90% however there is no bandemia present. Glucose is 94. BUN is 9. Creatinine 1.0. Sodium is 140. Potassium is just a smidge low at 3.4. Chloride 106. CO2 27. Anion gap is 10. Calcium is 9.0. Protein 7.7. Albumin 3.8. Alkaline phosphatase is 104. AST is 25, ALT 22, total bilirubin 0.7. EGFR is 73. Amylase is obtained and is normal less than 30. Abdomen pelvis CT with contrast is interpreted as "1. Imaging findings suggestive of pyelonephritis, left greater than right. No CT evidence of renal abscess. No obvious urinary calculus, however ureters are difficult to follow in their entirety distally. 2. Mild irregularity involving the inferior endplate of L5. Findings are likely degenerative or related to Schmorl's node formation, but if clinical concern for discitis osteomyelitis, correlation with lumbar spine MR could be useful. 3. Irregularity of the sacroiliac joints bilaterally( series 4, image 63). CT findings are suggestive of changes from sacroiliitis. 4. Left adnexal cyst measuring 2.5 cm." In our ED temp was 99.6 Fahrenheit. Pulse 93. Respirations 16. Blood pressure 159/86. Pulse ox 94% she was given Dilaudid for pain and a 1 L fluid bolus. She is also given 4 mg IV push Zofran and a scopolamine patch. 1 g IV Rocephin was started. Dr. Angeles requested a quantitative hCG which was negative. CRP was obtained and was 15.1. Repeat UA was obtained showing cloudy urine with 1+ protein, 1+ occult blood, 1+ leukocyte esterase, 20-30 WBCs, 10- 20 epithelial cells. Urine hCG was also negative. She carries a history of hypertension, hiatal hernia, , tubal ligation , inguinal hernia repair. She was never a smoker. She was admitted observation status. She does not have a PCP in the area. Diagnosis: Stroke: No - Discharge Data Discharge Date: 10/29/18 (Admit date:10/27/18) Discharge Disposition: Home, Self-Care 01 Condition: Good - Discharge Diagnosis/Problem(s) (1) Pyelonephritis SNOMED Code(s): 48448614 ICD Code: N12 - TUBULO-INTERSTITIAL NEPHRITIS, NOT SPCF ACUTE OR CHRONIC Status: Acute Priority: High (2) Anemia SNOMED Code(s): 501991294 ICD Code: D64.9 - ANEMIA, UNSPECIFIED Status: Acute Priority: High Qualifiers: Anemia type: iron deficiency Iron deficiency anemia type: unspecified iron deficiency Qualified Code(s): D50.9 - Iron deficiency anemia, unspecified (3) Bilateral flank pain SNOMED Code(s): 278393380 ICD Code: R10.9 - UNSPECIFIED ABDOMINAL PAIN Status: Acute Priority: High (4) Adnexal cyst SNOMED Code(s): 83148419424932 ICD Code: N94.9 - UNSP COND ASSOC W FEMALE GENITAL ORGANS AND MENSTRUAL CYCLE Status: Acute Priority: Medium (5) Bilateral sacroiliitis SNOMED Code(s): 84417865 ICD Code: M46.1 - SACROILIITIS, NOT ELSEWHERE CLASSIFIED Status: Acute Priority: High (6) Menorrhagia SNOMED Code(s): 205029011 ICD Code: N92.0 - EXCESSIVE AND FREQUENT MENSTRUATION WITH REGULAR CYCLE Status: Acute Priority: High Qualifiers: Menorrahagia type: with regular cycle Qualified Code(s): N92.0 - Excessive and frequent menstruation with regular cycle - Patient Summary/Data Consults: Consultations 10/26/18 07:54 Consult to Water Analyst [CONS] Routine Consult to Spiritual Care [CONS] Routine 10/27/18 14:30 Consult to Occupational Therapy [OT Evaluation and Treatment] [CONS] Routine PT Evaluation and Treatment [CONS] Routine 10/28/18 12:17 Consult to Physician [CONS] Routine Labs Pending at D/C: None Recommended Follow-up Testing/Procedures: Follow-up and establish with a PCP early next week. Follow-up with Dr. Oscar if wishing to pursue biopsy locally. Hospital Course: I/P: Acute: Pyelonephritis -Reports urgency and increased frequency, fever, nausea, vomiting -Back pain that started a few days ago, has increased in frequency, and radiates bilaterally around flank, through abdomen, and into groin -Pain is 9/10 -Bilateral CVA tenderness -WBC 23.01-->12.75-->7.95-->9.10 -CRP 15.1-->14.7-->9.5-->7.7 -CT scan at [place] (10/25/18) suggests pyelonephritis. Left greater than right, No evidence of abscess, No obvious urinary calculus -UA at [place] (10/25/18): 21-50 WBCs, 11-30 RBCs, Moderate bacteria, Moderate LE, 100mg/dl Protein -Repeat UA in ED (10/25/18): Cloudy urine with 1+ protein, 1+ occult blood, 1 + leukocyte esterase, 20-30 WBCs, 10-20 epithelial cells -Urine culture shows gram negative rods -Obtain urine culture from [place] if done -Started on 1gm Rocephin -> Stopped -Zosyn and vancomycin started -> stop vancomycin--> stop zosyn and de- escalate to 1gm rocephin daily -IV fluids as ordered -Blood cultures negative -Lactic acid 0.6 -Pain medications as ordered -Probiotic -Antiemetics for nausea -Tylenol for fever Anemia -Hgb noted to be 7.9 at [place] (10/25/18) -Hgb 7.2 on 10/26/17, Repeat 7.1 -->8.9-->8.7-->9.6 -Given 2 units of blood on floor -Occult stool ordered -Iron panel: Iron 8, TIBC 254, % saturation 3, transferrin 203 -Iron infusion given 10/28/18 -Reports very heavy periods since tubal ligation, needs to tape 2 pads together -OB consult ordered - Dr. Oscar -Transvaginal ultrasound on 10/29/18 * 1. Multiple fibroids within the uterus. Largest fibroids as noted * 2. Good endometrial stripe not optimally seen, endometrial thickness felt to be mildly prominent at 2.2 cm. * 3. Incidental nabothian cysts. * 4. Collapsing cysts within the left ovary. Moderate amount of free fluid within the pelvis most likely related to collapsing cyst -Last menstrual cycle occur/red at beginning of month, lasting 4-5 days -Reportedly awoke and found to have small amount of blood on pad -Dr. 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 Irregular CT scan on 10/25/18 at [facility] -"Mild irregularity involving the inferior endplate of L5. Findings are likely degenerative or related to Schmorl's node formation, but if clinical concern for discitis osteomyelitis, correlation with lumbar spine MR could be useful. -Based on severe pain and clinical picture will order MRI of lumbar spine - suggested by Dr. Angeles -MRI Negative -Also noted "irregularity of the sacroiliac joints bilateral (series 4, image 63). CT findings are suggestive of changes from sacroiliitis" -Will order Toradol for inflammation -"Left adnexal cyst measuring up to 2.5 cm" -Dr. Oscar consulted Resolved: Hypokalemia -Potassium 3.0-->4.0 -Supplement Chronic: HTN Hiatal hernia Prior Inguinal hernia with surgical repair Plan: Admit to medical floor observation status Other orders as indicated above Home medications as ordered Routine AM labs Ambulate DVT prophylaxis: SCDs Code status: Full code; PCP: None in area - travels here for work; Appointment made for [facility] Rodriguez, Family practice Taylor was admitted for pyelonephritis after presenting to our ED on 10/26/2018. Blood cultures were obtained and were negative. She is noted to have costovertebral angle tenderness bilaterally, along with abdominal and lower back pain. She was started on Zosyn and Rocephin due to the bilateral pyelonephritis. CT scan results from [facility] was reviewed and it is noted that there was mild irregularity involving the inferior endplate of L5 as above. He started on vancomycin 1 dose while MRI was obtained due to suggesting of discitis osteomyelitis in CT report and low back pain. MRI returned negative. After admission she was noted to be anemic with a hemoglobin of 7.2. She was given 2 units of blood. Stool was negative for blood. Iron studies were performed and showed an iron of 8 wiht 3% saturation. She was started on iron supplementation and ultimately given an iron infusion. CT scan did not show any concerns for bleeding in the abdomen. She denied any malonic stool or hematochezia. In looking for other causes she did note that she has very heavy menstruations. She notes that she often has to take multiple pads together and will bleed through her pants and clothing. Dr. Oscar, MANAGER CARGO on-call was consulted and does perform a bedside exam. He did review the CT scan from [place] and ultimately a ultrasound was performed on as above. She was diagnosed with menorrhagia and is noted she has uterine fibroids. Dr. Oscar recommends further evaluation of the uterine lining with a biopsy and possible sonohysterography. This could be obtained locally or as she is a traveling [employer] she could obtain it when she gets back home. She was given the contact information for our clinic to make an appointment if she should desire. Urine culture did show gram-negative rods. Antibiotics were D escalated to 1 g Rocephin daily. She was discharged on Bactrim DS 1 tab every 12 hours for 9 more days. She was also given Naprosyn 500 mg twice a day. Due to continuing pain she was prescribed Pinecrest every 6 hours when necessary 12 pills total. She was advised of the dangers of taking Pinecrest while driving or operating machinery. She was given a work note to excuse her from work until she follows up with a primary care provider. An appointment was made for her with RHYS Rodriguez on 11/01/2018. She was advised to follow-up with PCP or return to the ED should she have any continuing symptoms. With the patient's permission Dr. Oscar did contact patient's mother. Of note per patient's mother Taylor has been somewhat noncompliant with follow-ups. This is especially true regarding her MANAGER [employer]GO. It was stressed to the patient how important these follow-ups are in that she will need to see her PCP and MANAGER CARGO once she returns home. She was told to have them contact us to obtain records for what was done here. - Patient Instructions Diet: Usual Diet as Tolerated Activity: As Tolerated Notify Provider of: Fever, Increased Pain, Nausea and/or Vomiting - Discharge Plan *PRESCRIPTION DRUG MONITORING PROGRAM REVIEWED*: No *COPY OF PRESCRIPTION DRUG MONITORING REPORT IN PATIENT YAHIR: No Prescriptions/Med Rec: Naproxen [Naprosyn] 500 mg PO Q12HR #14 tab Acetaminophen/HYDROcodone [Pinecrest 325-5 MG] 1 tab PO Q4H PRN #12 tablet PRN Reason: Pain (Moderate 4-6) Iron Polysaccharides Complex [Ferrex 150] 150 mg PO DAILY #20 cap Sulfamethoxazole/Trimethoprim [Bactrim Ds Tablet] 1 each PO BID #18 tablet Home Medications: Home Meds Lisinopril/Hydrochlorothiazide [Lisinopril-Hctz 10-12.5 mg Tab] 1 each PO DAILY 10/25/18 [History] Acetaminophen/HYDROcodone [Pinecrest 325-5 MG] 1 tab PO Q4H PRN #12 tablet 10/29/18 [Rx] Iron Polysaccharides Complex [Ferrex 150] 150 mg PO DAILY #20 cap 10/29/18 [Rx] Naproxen [Naprosyn] 500 mg PO Q12HR #14 tab 10/29/18 [Rx] Sulfamethoxazole/Trimethoprim [Bactrim Ds Tablet] 1 each PO BID #18 tablet 10/29 [Rx] Nystatin 100,000 unit PO QID 10 Days ml 10/30/18 [Rx] Saccharomyces Boulardii [Florastor] 250 mg PO BID #40 cap 10/30/18 [Rx] Oxygen Therapy Mode: Room Air Patient Handouts: Blood Transfusion, Adult, [id number], Pyelonephritis, Adult , [id number], Anemia, Uterine Fibroids, [id number], Urinary Tract Infection , Adult Referrals: Bebeto Oscar MD [Physician] - (Please call [phone] after 8am on Thursday to schedule an appointment for the endometrial biopsy.) Rebekah Marc NP [ED Midlevel Provider] - 11/01/18 10:30 am (Please see Rebekah Marc for follow up after stay in the hospital regarding anemia and to establish care. ) PCP,Not In Area [Primary Care Provider] - (Please see primary care provider once you return home ) - Discharge Summary/Plan Comment DC Time >30 min.: Yes (45 mins) - General Info Date of Service: 10/29/18 Admission Dx/Problem (Free Text: Admission Diagnosis/Problem Admission Diagnosis/Problem Pyelonephritis Subjective Update: In to see Taylor. She is doing better today. Dr. Oscar was in to see her and give her options for follow-up from a MANAGER CARGO standpoint. She will be discharged today. Plan is to have her follow-up in clinic early next week. Functional Status: Reports: Pain Controlled, Tolerating Diet, Ambulating, Urinating. Denies: New Symptoms - Review of Systems General: Reports: No Symptoms. Denies: Fever, Weakness, Fatigue, Malaise, Chills HEENT: Reports: No Symptoms. Denies: Headaches, Sore Throat, Rhinitis Pulmonary: Reports: No Symptoms. Denies: Shortness of Breath, Pleuritic Chest Pain, Cough, Sputum, Wheezing Cardiovascular: Reports: No Symptoms. Denies: Chest Pain, Palpitations, Dyspnea on Exertion, Edema, Lightheadedness Gastrointestinal: Reports: Abdominal Pain (Improved ). Denies: Constipation, Decreased Appetite, Diarrhea, Nausea, Vomiting Genitourinary: Reports: No Symptoms Musculoskeletal: Reports: No Symptoms Skin: Reports: No Symptoms Neurological: Reports: No Symptoms. Denies: Confusion, Difficulty Walking, Gait Disturbance Psychiatric: Reports: No Symptoms - Patient Data Vitals - Most Recent: Last Vital Signs Temp 97.5 F 10/29/18 02:34 Pulse 70 10/29/18 02:34 Resp 16 10/29/18 02:34 BP 138/80 10/29/18 02:42 Pulse Ox 98 10/29/18 02:34 Weight - Most Recent: 236 lb 4.8 oz I&O - Last 24 hours: Intake & Output 10/28/18 10/28/18 10/29/18 14:59 22:59 06:59 Intake Total 440 1150 300 Output Total 2800 1200 Balance 440 1650 -900 Lab Results - Last 24 hrs: Laboratory Results - last 24 hr 10/28/18 10/28/18 Range/Units 05:55 05:55 Manual Slide Review Abnormal smear Sodium 140 (136-145) mEq/L Potassium 3.8 (3.5-5.1) mEq/L Chloride 106 (98-107) mEq/L Carbon Dioxide 24 (21-32) mEq/L Anion Gap 13.8 (5-15) BUN 10 (7-18) mg/dL Creatinine 1.2 H (0.55-1.02) mg/dL Est Cr Clr Drug Dosing 53.75 mL/min Estimated GFR (MDRD) 59 (>60) mL/min BUN/Creatinine Ratio 8.3 L (14-18) Glucose 90 (74-106) mg/dL Calcium 8.4 L (8.5-10.1) mg/dL Magnesium 1.9 (1.8-2.4) mg/dl C-Reactive Protein 9.5 H* (<1.0) mg/dL POORNIMA Results - Last 24 hrs: Microbiology 10/25/18 22:50 Aerobic Blood Culture - Preliminary Blood - Venous NO GROWTH AFTER 3 DAYS Anaerobic Blood Culture - Preliminary NO GROWTH AFTER 3 DAYS 10/26/18 09:20 Stool Occult Blood (POORNIMA) - Final Stool / Feces 10/25/18 23:00 Aerobic Blood Culture - Preliminary Blood - Venous - Lab Draw NO GROWTH AFTER 2 DAYS Anaerobic Blood Culture - Preliminary NO GROWTH AFTER 2 DAYS Med Orders - Current: Current Medications Acetaminophen (Tylenol) 650 mg PO Q4H PRN PRN Reason: Pain (Mild 1-3)/fever Acetaminophen/Butalbital/Caffeine (Fioricet 325-50-40 Mg) 1 tab PO Q6H PRN PRN Reason: Headache/Pain Hydrocodone Bitart/Acetaminophen (Pinecrest 325-5 Mg) 1 tab PO Q4H PRN PRN Reason: Pain (moderate 4-6) Last Admin: 10/26/18 18:20 Dose: 1 tab Albuterol/Ipratropium (Duoneb 3.0-0.5 Mg/3 Ml) 3 ml NEB Q4H PRN PRN Reason: Shortness Of Breath/wheezing Bisacodyl (Dulcolax) 5 mg PO DAILY PRN PRN Reason: Constipation Last Admin: 10/27/18 20:59 Dose: 5 mg Famotidine (Pepcid) 20 mg PO BID YAQUELIN Last Admin: 10/28/18 20:39 Dose: 20 mg Hydralazine HCl (Apresoline) 20 mg IVPUSH Q4H PRN PRN Reason: Hypertension Hydrochlorothiazide (Hydrochlorothiazide) 12.5 mg PO DAILY [facility] Last Admin: 10/28/18 09:31 Dose: 12.5 mg Hydromorphone HCl (Dilaudid) 0.5 mg IVPUSH Q4H PRN PRN Reason: Pain (severe 7-10) Last Admin: 10/26/18 05:24 Dose: 0.5 mg Ceftriaxone Sodium 1 gm/ (Sodium Chloride) 100 mls @ 200 mls/hr IV Q24H [facility] Last Admin: 10/28/18 17:53 Dose: 200 mls/hr Ketorolac Tromethamine (Toradol) 30 mg IVPUSH Q6H [facility] Last Admin: 10/29/18 02:29 Dose: 30 mg Lorazepam (Ativan) 1 mg IV Q6H PRN PRN Reason: Anxiety Last Admin: 10/26/18 14:22 Dose: 1 mg Magnesium Sulfate (Pharmacy To Dose - Magnesium Replacement) 1 dose .XX ASDIRECTED [facility] Metoprolol Tartrate (Lopressor) 5 mg IVPUSH Q4H PRN PRN Reason: Tachycardia Ondansetron HCl (Zofran) 4 mg IV Q6H PRN PRN Reason: Nausea/Vomiting Last Admin: 10/28/18 12:41 Dose: 4 mg Oxycodone HCl (Oxycontin) 10 mg PO Q12HR [facility] Last Admin: 10/28/18 20:38 Dose: 10 mg Polyethylene Glycol (Miralax) 17 gm PO DAILY PRN PRN Reason: Constipation Polysaccharide Iron Complex (Ferrex 150) 150 mg PO DAILY [facility] Last Admin: 10/28/18 09:31 Dose: 150 mg Potassium Chloride (Pharmacy To Dose - Potassium Replacement) 1 dose .XX ASDIRECTED [facility] Saccharomyces Boulardii (Florastor) 250 mg PO BID [facility] Last Admin: 10/28/18 20:38 Dose: 250 mg Temazepam (Restoril) 7.5 mg PO BEDTIME PRN PRN Reason: Sleep Tramadol HCl (Ultram) 100 mg PO Q6H PRN PRN Reason: Pain (moderate 4-6) Last Admin: 10/26/18 04:26 Dose: 100 mg Discontinued Medications Dexamethasone (Dexamethasone) 4 mg IVPUSH ONETIME ONE Stop: 10/28/18 12:31 Last Admin: 10/28/18 12:41 Dose: 4 mg Diphenhydramine HCl (Benadryl) 25 mg IVPUSH ONETIME ONE Stop: 10/26/18 08:28 Last Admin: 10/26/18 09:18 Dose: Not Given Furosemide (Lasix) 40 mg IVPUSH ONETIME ONE Stop: 10/28/18 12:31 Last Admin: 10/28/18 12:41 Dose: 40 mg Gadobenate Dimeglumine (Multihance) 20 ml IVPUSH ONETIME ONE Stop: 10/26/18 15:08 Last Admin: 10/26/18 15:49 Dose: 20 ml Hydromorphone HCl (Dilaudid) 0.5 mg IVPUSH ONETIME ONE Stop: 10/25/18 19:03 Last Admin: 10/25/18 20:34 Dose: 0.5 mg Ceftriaxone Sodium 1 gm/ (Sodium Chloride) 100 mls @ 200 mls/hr IV Q24H [facility] Last Admin: 10/25/18 20:34 Dose: 200 mls/hr Sodium Chloride (Normal Saline) 1,000 mls @ 999 mls/hr IV ASDIRECTED [facility] Last Admin: 10/25/18 20:33 Dose: 999 mls/hr Sodium Chloride (Normal Saline) 1,000 mls @ 125 mls/hr IV ASDIRECTED [facility] Last Admin: 10/26/18 06:37 Dose: 125 mls/hr Ceftriaxone Sodium 1 gm/ (Sodium Chloride) 100 mls @ 200 mls/hr IV Q24H [facility] Piperacillin Sod/Tazobactam (Sod 4.5 gm/ Sodium Chloride) 100 mls @ 25 mls/hr IV Q8H [facility] Last Admin: 10/26/18 21:51 Dose: Not Given Piperacillin Sod/Tazobactam (Sod 4.5 gm/ Sodium Chloride) 100 mls @ 200 mls/hr IV ONETIME ONE Stop: 10/25/18 23:29 Last Admin: 10/26/18 00:09 Dose: 200 mls/hr Sodium Chloride (Normal Saline) Confirm Administered Dose 100 mls @ as directed .ROUTE .STK-MED ONE Stop: 10/26/18 00:04 Last Admin: 10/26/18 05:12 Dose: Not Given Ferric Sodium Gluconate Complex 250 mg/ Sodium Chloride 120 mls @ 60 mls/hr IV ONETIME ONE Stop: 10/26/18 10:26 Last Admin: 10/27/18 09:57 Dose: Not Given Sodium Chloride (Normal Saline) 500 mls @ 999 mls/min IV .BOLUS ONE Stop: 10/26/18 12:01 Last Admin: 10/26/18 21:51 Dose: Not Given Sodium Chloride (Normal Saline) 1,000 mls @ 75 mls/hr IV ASDIRECTED [facility] Last Admin: 10/28/18 10:57 Dose: 75 mls/hr Ceftriaxone Sodium 2 gm/ (Sodium Chloride) 100 mls @ 200 mls/hr IV Q24H [facility] Vancomycin HCl 1 gm/Vancomycin HCl 250 mg/ Sodium Chloride 250 mls @ 166.667 mls/hr IV Q12H [facility] Last Admin: 10/26/18 21:51 Dose: Not Given Piperacillin Sod/Tazobactam (Sod 4.5 gm/ Sodium Chloride) 100 mls @ 25 mls/hr IV Q8H [facility] Stop: 10/28/18 14:00 Last Admin: 10/28/18 09:31 Dose: 25 mls/hr Vancomycin HCl 1 gm/Vancomycin HCl 250 mg/ Sodium Chloride 250 mls @ 166.667 mls/hr IV Q12H [facility] Last Admin: 10/26/18 22:53 Dose: 166.667 mls/hr Iron Sucrose 200 mg/ Sodium (Chloride) 260 mls @ 83 mls/hr IV ONETIME ONE Stop: 10/28/18 15:04 Last Admin: 10/28/18 12:09 Dose: Not Given Ferric Sodium Gluconate Complex 250 mg/ Sodium Chloride 120 mls @ 60 mls/hr IV ONETIME ONE Stop: 10/28/18 15:29 Last Admin: 10/28/18 14:46 Dose: 60 mls/hr Lisinopril (Prinivil) 10 mg PO DAILY [facility] Last Admin: 10/26/18 10:27 Dose: 10 mg Methylprednisolone Sodium Succinate (Solu-Medrol) 40 mg IVPUSH ONETIME ONE Stop: 10/26/18 08:29 Last Admin: 10/26/18 09:18 Dose: Not Given Ondansetron HCl (Zofran) 4 mg IVPUSH ONETIME ONE Stop: 10/25/18 19:03 Last Admin: 10/25/18 20:33 Dose: 4 mg Potassium Chloride (Klor-Con M20) 40 meq PO BID [facility] Stop: 10/26/18 21:01 Last Admin: 10/26/18 20:40 Dose: 40 meq Scopolamine (Transderm-Scop) 1.5 mg TRDERM Q72H ONE Stop: 10/25/18 22:23 Last Admin: 10/25/18 23:48 Dose: 1.5 mg Sodium Chloride (Saline Flush) 10 ml FLUSH ASDIRECTED YAQUELIN Stop: 10/26/18 18:00 Last Admin: 10/26/18 15:49 Dose: 10 ml Vancomycin HCl (Pharmacy To Dose - Vancomycin) 1 dose .XX ASDIRECTED YAQUELIN - Exam Quality Assessment: Reports: DVT Prophylaxis General: Reports: Alert, Oriented, Cooperative, No Acute Distress HEENT: Reports: Pupils Equal, Pupils Reactive, EOMI, Mucous Membr. Moist/[place] Neck: Reports: Supple, Trachea Midline, No JVD Lungs: Reports: Clear to Auscultation, Normal Respiratory Effort Cardiovascular: Reports: Regular Rate, Regular Rhythm GI/Abdominal Exam: Normal Bowel Sounds, Soft, No Organomegaly, No Distention, No Abnormal Bruit, No Mass, Pelvis Stable, Tender (mildly - improved ) (Female) Exam: Deferred Rectal (Female) Exam: Deferred Back Exam: Reports: Normal Inspection, Full Range of Motion Extremities: Normal Inspection, Normal Range of Motion, Non-Tender, No Pedal Edema, Normal Capillary Refill Skin: Reports: Warm, Dry, Intact Neurological: Reports: No New Focal Deficit Psy/Mental Status: Reports: Alert, Normal Affect, Normal Mood
[2018-10-29] MEDS: Saccharomyces Boulardii (Probiotic) 250 MG Cap PO SCH (09:19)
[2018-10-29] MEDS: oxyCODONE ER 10 MG TAB.ER PO SCH (09:19)
[2018-10-29] MEDS: Famotidine 20 MG Tab PO SCH (09:19)
[2018-10-29] MEDS: Iron Polysaccharides Complex 150 MG Cap PO SCH (09:19)
[2018-10-29] MEDS: Hydrochlorothiazide 12.5 MG Cap PO SCH (09:19)
--- NOTE | 2018-10-29 10:23 | US ---
Pelvic ultrasound: Multiple real-time images were obtained transvaginally. Comparison: No prior pelvic imaging. There are at least 3 fibroids within the uterus. Fundal fibroid measures 3.5 cm in size. Fibroid within the body of the uterus posteriorly measures 2.5 cm in size and third fibroid is seen within the lower uterine segment measuring 1.4 cm. Other smaller fibroids are likely present. Multiple nabothian cysts are noted. Good endometrial stripe not seen. Endometrial thickness up to 2.2 cm. Follicles are seen within both ovaries. Small collapsing cyst is noted within the left ovary measuring 2.7 cm. Moderate amount of free fluid within the pelvis is seen likely relating to collapsing cyst. Ovaries are otherwise unremarkable. Measurements: Uterine length: 8.9 cm, AP height 5.0 cm, transverse width 5.8 cm Right ovary: 3.2 x 1.6 x 2.6 cm Left ovary: 4.0 x 2.4 x 3.2 cm Impression: 1. Multiple fibroids within the uterus. Largest fibroids as noted above. 2. Good endometrial stripe not optimally seen, endometrial thickness felt to be mildly prominent at 2.2 cm. 3. Incidental nabothian cysts. 4. Collapsing cyst within the left ovary. Moderate amount of free fluid within the pelvis most likely relating to the collapsing cyst. Diagnostic code #3
--- NOTE | 2018-10-29 11:00 | PCM.SN ---
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 She had this time is not having any significant bleeding. Ultrasound done on 10/29/2018 shows A midline uterus which appears upper limits normal size. Uterus measures approximately 8 x 5 x 6 cm in 3 dimensions. In the uterus are 3 fibroids. Largest is in the fundus measuring 2.5 cm, second largest is in the body of the uterus measuring 2.5 cm. In the smallest is in the lower uterine segment measuring 1.4 cm. Endometrial lining is not optimally visualized but appears somewhat thickened at 2.2 cm. There is a small monitor free fluid in posterior cul-de-sac. Both ovaries are normal in appearance however 1 ovary appears to have a collapsing cyst measuring 2.7 cm. Assessment: 1. Menorrhagiasevere with resultant severe blood loss microcytic anemianow status post transfusion and doing well clinically. Bleeding has stopped 2. Uterus shows fibroids, thickened endometrium and a collapsing ovarian cyst. Rule out endometrial hyperplasia or malignancy. 3. Multiple comorbidities. Plan: 1. Recommend further evaluation of the uterine lining with endometrial biopsy or possible infusion sonohysterography. Have discussed with patient options of therapy if the endometrial biopsy returned benign. She appears to understand and will consider these. She needs to make a decision whether she would like these evaluations done prior to going back to her state of [place] which she had planned to do at the end of next week. 2. If patient desires evaluation would recommend follow-up in clinic next week with endometrial biopsy and possible saline infusion sonohysterography.
== END 2018-10-29 17:13 | disposition home or self-care (01) | DRG 690 ==
LOC: JD.ED 18:38 → JD.MS 21:56 → OBSVTOIN 10-27 10:31
PROVIDERS: ADMIT Internal Medicine; ATTEND Internal Medicine
PROC: 30233N1 Transfusion of Nonautologous Red Blood Cells into Peripheral Vein, Percutaneous Approach (ICD-10-PCS; principal; 2018-10-26)
DX: N12 Tubulo-interstitial nephritis, not specified as acute or chronic (principal); E66.9 Obesity, unspecified; D50.0 Iron deficiency anemia secondary to blood loss (chronic); D25.9 Leiomyoma of uterus, unspecified; I10 Essential (primary) hypertension; N83.8 Other noninflammatory disorders of ovary, fallopian tube and broad ligament; E87.6 Hypokalemia; M46.1 Sacroiliitis, not elsewhere classified; N92.0 Excessive and frequent menstruation with regular cycle; Z79.899 Other long term (current) drug therapy; Z98.891 History of uterine scar from previous surgery; Z87.76 Personal history of (corrected) congenital malformations of integument, limbs and musculoskeletal system; Z68.39 Body mass index [BMI] 39.0-39.9, adult
CPT/HCPCS: 36415; 36430; 72158; 72158-26; 76830; 76830-26; 80048; 81001; 81025; 82272; 82962; 83540; 83605; 83735; 84145; 84466; 84702; 85014; 85018; 85025; 85045; 86140; 86850; 86900; 86901; 86922; 87040; 87086; 87088; 87186; 96361; 96365; 96366; 96367; 96375; 96376; 97116-GP; 97162-GP; 99284; 99284-25; A9270-GY; A9577; G0378; J0696; J1100; J1170; J1885; J2060; J2405; J2543; J2916; J3370; J7030; J7040; J7050; P9016

== ENCOUNTER 2018-10-30 14:23 | Emergency (ER) | payer MEDICAID ==
--- NOTE | 2018-10-30 15:26 | EDM.PDOC ---
ED HPI GENERAL MEDICAL PROBLEM - General Chief Complaint: General Stated Complaint: THRUSH Time Seen by Provider: 10/30/18 14:57 Source of Information: Reports: Patient History Limitations: Reports: No Limitations - History of Present Illness INITIAL COMMENTS - FREE TEXT/NARRATIVE: Pt is a 43yo F that was D/C'd from the hospital yesterday for pyelonephritis and was sent home prescription of Bactrim. Today she presents with throat pain, difficulty swallowing and diarrhea x 1 day. She is not currently on a probiotic. No h/o DM2 or other immunodeficiency. These symptoms are likely caused by her current antibiotic she is taking. No other symptoms at this time. Oral/Mouth Pain Score (Numeric/FACES): 8 Headache Pain Score (Numeric/FACES): 8 - Related Data Allergies Allergy/AdvReac Type Severity Reaction Status Date / Time No Known Allergies Allergy Verified 10/30/18 14:35 Home Meds: Home Meds Lisinopril/Hydrochlorothiazide [Lisinopril-Hctz 10-12.5 mg Tab] 1 each PO DAILY 10/25/18 [History] Acetaminophen/HYDROcodone [[place] 325-5 MG] 1 tab PO Q4H PRN #12 tablet 10/29/18 [Rx] Iron Polysaccharides Complex [Ferrex 150] 150 mg PO DAILY #20 cap 10/29/18 [Rx] Naproxen [Naprosyn] 500 mg PO Q12HR #14 tab 10/29/18 [Rx] Sulfamethoxazole/Trimethoprim [Bactrim Ds Tablet] 1 each PO BID #18 tablet 10/29 [Rx] Nystatin 100,000 unit PO QID 10 Days ml 10/30/18 [Rx] Saccharomyces Boulardii [Florastor] 250 mg PO BID #40 cap 10/30/18 [Rx] Past Medical History Cardiovascular History: Reports: Hypertension Gastrointestinal History: Reports: Hiatal Hernia 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 Social & Family History - Family History Family Medical History: Noncontributory - Tobacco Use Smoking Status *Q: Never Smoker - Caffeine Use Caffeine Use: Reports: Soda - Recreational Drug Use Recreational Drug Use: No ED ROS GENERAL - Review of Systems Review Of Systems: See Below Constitutional: Reports: No Symptoms. Denies: Fever, Chills HEENT: Reports: Throat Pain, Other (difficulty swallowing) Respiratory: Reports: No Symptoms. Denies: Shortness of Breath, Cough Cardiovascular: Reports: Blood Pressure Problem. Denies: Chest Pain Endocrine: Reports: No Symptoms GI/Abdominal: Reports: Diarrhea. Denies: Abdominal Pain, Nausea, Vomiting : Reports: No Symptoms Musculoskeletal: Reports: No Symptoms Skin: Reports: No Symptoms Neurological: Reports: No Symptoms ED EXAM, GENERAL - Physical Exam Exam: See Below Exam Limited By: No Limitations General Appearance: Alert, WD/WN Eye Exam: Bilateral Eye: PERRL Ears: Normal External Exam, Hearing Grossly Normal Nose: Normal Inspection, Normal Mucosa, No Blood Throat/Mouth: Inflammation. No: Normal Inspection (erythematous throat and white coating on the tongue) Head: Atraumatic, Normocephalic Neck: Normal Inspection, Supple, Non-Tender, Full Range of Motion Respiratory/Chest: No Respiratory Distress, Lungs Clear, Normal Breath Sounds, No Accessory Muscle Use, Chest Non-Tender Cardiovascular: Normal Peripheral Pulses, Regular Rate, Rhythm, No Edema GI/Abdominal: Normal Bowel Sounds, Soft, Non-Tender, No Organomegaly, No Distention, No Abnormal Bruit, No Mass Neurological: Alert, Oriented, CN II-XII Intact, Normal Cognition, Normal Gait, Normal Reflexes, No Motor/Sensory Deficits Skin Exam: Warm, Dry, Intact, Normal Color, No Rash Course - Vital Signs Last Recorded V/S: Last Vital Signs Temp 97.7 F 10/30/18 14:36 Pulse 68 10/30/18 14:36 Resp BP 182/106 H 10/30/18 14:36 Pulse Ox 99 10/30/18 14:36 Departure - Departure Time of Disposition: 15:26 Disposition: Home, Self-Care 01 Condition: Good Clinical Impression: Thrush, oral - Discharge Information *PRESCRIPTION DRUG MONITORING PROGRAM REVIEWED*: Not Applicable *COPY OF PRESCRIPTION DRUG MONITORING REPORT IN PATIENT YAHIR: Not Applicable Prescriptions: Nystatin 100,000 unit PO QID 10 Days ml Saccharomyces Boulardii [Florastor] 250 mg PO BID #40 cap Instructions: Oral Thrush, Adult, [id number] Referrals: PCP,Not In Area [Primary Care Provider] - Additional Instructions: You were seen in the ED today for throat pain, difficulty swallowing, and diarrhea. These symptoms are likely caused by your antibiotics you are taking for your kidney infection. You will be prescribed a mouthwash for the fungal infection in your mouth and a probiotic for your diarrhea. Please return to the ED if any new or worsening symptoms. Continue taking your antibiotics as directed and follow up with your primary care provider.
== END 2018-10-30 15:56 | disposition home or self-care (01) ==
LOC: JD.ED 14:23
DX: B37.0 Candidal stomatitis (principal); R19.7 Diarrhea, unspecified; I10 Essential (primary) hypertension; Z79.899 Other long term (current) drug therapy
CPT/HCPCS: 99282; 99283